=== PATIENT | female | born 1970 | race Caucasian/White ===

== ENCOUNTER 2020-07-11 08:43 | Emergency (ER) | payer OTHER ==
[2020-07-11 08:58] VITALS: O2SAT 97
--- NOTE | 2020-07-11 10:00 | XRAY ---
Indication: Pain. No known injury. Comparison: None 3 view right shoulder demonstrates 2.2 cm well-circumscribed ossification superolateral to humeral head with large effusion better evaluated with CT. No donor site identified. Query anterior inferior humeral head subluxation/dislocation. Minimal AC degenerative arthropathy.
--- NOTE | 2020-07-11 10:07 | ERPHSYRPT ---
- History of Present Illness Time Seen by Provider: 07/11/20 08:51 Source: patient Exam Limitations: no limitations Patient Subjective Stated Complaint: R shoulder pain Triage Nursing Assessment: pt to ED c/o R shoulder pain 12/30. reports she has b een moving and lifting heavily. reports liminted ROM "can't lift it up at all." no loss senstion distal to injury. no obvious trauma noted, no swelling or redness. states pain is non radiating. Physician History: Location: right shoulder Quality: dull, aching Radiation: none Severity: moderate Duration: 2-3 weeks Timing: gradual Modifying factors/associated signs and symptoms: started after moving, has taken tylenol, has not seen PCP Allergies/Adverse Reactions: codeine Allergy (Verified 07/11/20 09:01) Nausea Home Medications: Atorvastatin Calcium [Lipitor] 10 mg PO DAILY 07/11/20 [History] Dulaglutide [Trulicity] 0.75 mg SQ DAILY 07/11/20 [History] Insulin Glargine,Hum.rec.anlog [Basaglar Kwikpen U-100] 100 unit SQ DAILY 07/11/20 [History] Propranolol HCl 10 mg PO DAILY PRN PRN 07/11/20 [History] Hx Tetanus, Diphtheria Vaccination/Date Given: Yes Hx Influenza Vaccination/Date Given: Yes Hx Pneumococcal Vaccination/Date Given: Yes Immunizations Up to Date: Yes Travel Risk - International Travel Have you traveled outside of the country in past 3 weeks: No - Coronavirus Screening Are you exhibiting any of the following symptoms?: No Close contact with a COVID-19 positive Pt in past 14-21 Days: No - Review of Systems Constitutional: No Fever, No Chills Eyes: No Symptoms Ears, Nose, & Throat: No Symptoms Respiratory: No Cough, No Dyspnea Cardiac: No Chest Pain, No Edema, No Syncope Abdominal/Gastrointestinal: No Abdominal Pain, No Nausea, No Vomiting, No Diarrhea Genitourinary Symptoms: No Dysuria Musculoskeletal: Other (right shoulder pain ), No Back Pain, No Neck Pain Skin: No Rash Neurological: No Dizziness, No Focal Weakness, No Sensory Changes Psychological: No Symptoms Endocrine: No Symptoms All Other Systems: Reviewed and Negative - Past Medical History Pertinent Past Medical History: Yes Endocrine Medical History: Diabetes Type II Psycho-Social History: Depression - Past Surgical History Past Surgical History: Yes Gastrointestinal: Colon Resection - Social History Smoking Status: Never smoker Exposure to second hand smoke: No Drug Use: none Patient Lives Alone: No - Female History Hx Last Menstrual Period: post Hx Now: No - Nursing Vital Signs Nursing Vital Signs: Initial Vital Signs Temperature 98.3 F 07/11/20 08:49 Pulse Rate 86 07/11/20 08:49 Respiratory Rate 18 07/11/20 08:49 Blood Pressure 116/89 07/11/20 08:49 O2 Sat by Pulse Oximetry 97 07/11/20 08:49 Pain Scale Pain Intensity 8 - Physical Exam General Appearance: no apparent distress, alert Eye Exam: PERRL/EOMI, eyes nml inspection Ears, Nose, Throat Exam: normal ENT inspection, TMs normal, pharynx normal, moist mucous membranes Neck Exam: normal inspection, non-tender, supple, full range of motion Respiratory Exam: normal breath sounds, lungs clear, No respiratory distress Cardiovascular Exam: regular rate/rhythm, normal heart sounds, normal peripheral pulses Gastrointestinal/Abdomen Exam: soft, normal bowel sounds, No tenderness, No mass Back Exam: normal inspection, normal range of motion, No CVA tenderness, No vertebral tenderness Extremity Exam: normal inspection, normal range of motion, pelvis stable, other (No obvious deformity, sensation intact, 2+ capillary refill, 2 point tactile discrimination intact. 5 out of 5) Neurologic Exam: alert, 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, cooperative, normal mood/affect, nml cerebellar function, nml station & gait, sensation nml, No motor deficits Skin Exam: normal color, warm, dry, No rash Lymphatic Exam: No adenopathy SpO2: 97 - Course Nursing assessment & vital signs reviewed: Yes Ordered Tests: Active Orders 24 hr Category Date Time Status SHOULDER Stat Exams 07/11/20 09:25 Completed - Progress Progress: improved Progress Note: 07/11/20 10:13 XR shows right shoulder effusion. No obvious fracture. Patient should see orthopedic surgery in the next 4-5 days. Return here for new or changing symptoms. We will patient in sling for comfort. Plan of care was discussed with patient and all questions answered. The patient is agreeable to be discharged home and both verbal and printed discharge instructions were provided.The patient agreed to seek outpatient follow up as discussed. The patient was given strict instructions to return to the emergency department for worsening symptoms or any other emergent concerns. The patient verbalized understanding. - Departure Departure Disposition: Home Clinical Impression: Right shoulder pain, Effusion of shoulder joint, right Condition: Stable Critical Care Time: No Referrals: DOCTOR,NO FAMILY [Primary Care Provider] - ESTELLE ROWLAND NP [NON-STAFF PHY W/O PRIVILEGES] - Instructions: Shoulder Sprain (DC) Additional Instructions: follow up in ortho clinic on Tuesday or Tuesday for continued evaluation
[2020-07-11 10:37] VITALS: BP 122/88; PULSE 78
== END 2020-07-11 10:39 | disposition home or self-care (01) ==
LOC: ED 08:43
DX: M25.511 Pain in right shoulder (principal); M25.411 Effusion, right shoulder; X50.0XXA Overexertion from strenuous movement or load, initial encounter; E11.9 Type 2 diabetes mellitus without complications
CPT/HCPCS: 73030; 99283

== ENCOUNTER 2020-12-11 17:17 | Emergency (ER) | payer OTHER ==
[2020-12-11] MEDS ORDERED: Zofran 4 MG/2 ML VIAL IV ONE (17:57)
[2020-12-11] MEDS ORDERED: Sodium Chloride 0.9% 1000 ML 1,000 ML IV STA (17:57)
--- NOTE | 2020-12-11 18:01 | ERPHSYRPT ---
- History of Present Illness Time Seen by Provider: 12/11/20 17:23 Historian: patient Exam Limitations: no limitations Patient Subjective Stated Complaint: NV, light headedness, possible bite on L ankle x 1 week. seen in [facility] care this week and dx with food poisoning. same sx 4-5 weeks ago Triage Nursing Assessment: pt to ED c/o NV and light headedness x 1 week. pt states "See this bite on my ankle, I want to be tested for Lyme Disease because I have all the symptoms." pt reports she had this same thing happen 4-5 weeks ago but it cleared on its own after 1 week. pt has appt scheduled with PCP 12/26/20 but states she is "missing too much work and needs this figured out sooner." Physician History: 50 years old morbidly obese female with history of diabetes mellitus presented in the ER with 3 days history of nausea vomiting diarrhea with some abdominal cramping without any significant aggravating or relieving factors. She is feeling weak fatigued and tired with no energy. She was tested outpatient 2 days ago for Covid which is negative. Denies any difficulty breathing. No fever or chills reported. Patient reports she feels tired and prolonged standing makes her get lightheaded with a feeling of going to pass out denies any focal numbness tingling weakness, no headache Timing/Duration: day(s) (3), intermittent, gradual onset, worse Activities at Onset: rest Quality: cramping Abdominal Pain Onset Location: generalized abdomen Severity of Pain-Max: moderate Severity of Pain-Current: mild Modifying Factors: Improves With: nothing Associated Symptoms: diarrhea, nausea, vomiting, weakness Previous symptoms: no prior history Allergies/Adverse Reactions: codeine Allergy (Verified 12/11/20 17:40) Nausea Home Medications: Atorvastatin Calcium [Lipitor] 10 mg PO DAILY 07/11/20 [History] Dulaglutide [Trulicity] 0.75 mg SQ DAILY 07/11/20 [History] Insulin Glargine,Hum.rec.anlog [Basaglar Kwikpen U-100] 100 unit SQ DAILY 07/11/20 [History] Propranolol HCl 10 mg PO DAILY PRN PRN 07/11/20 [History] Amlodipine/Atorvastatin [Amlodipine-Atorvast 2.5-40 mg] 1 each PO DAILY 12/11/20 [History] Brexpiprazole [Rexulti] 0.5 mg PO DAILY 12/11/20 [History] Ferrous Gluconate 324 mg PO DAILY 12/11/20 [History] Magnesium 30 mg PO DAILY 12/11/20 [History] Hx Tetanus, Diphtheria Vaccination/Date Given: No Hx Influenza Vaccination/Date Given: Yes Hx Pneumococcal Vaccination/Date Given: No Immunizations Up to Date: No Travel Risk - International Travel Have you traveled outside of the country in past 3 weeks: No - Coronavirus Screening Are you exhibiting any of the following symptoms?: Yes Symptoms: Vomiting/Diarrhea Close contact with a COVID-19 positive Pt in past 14-21 Days: No - Vaccine Status Have you recieved a Covid-19 vaccination: No - Review of Systems Constitutional: Fatigue, Weakness Eyes: No Symptoms Ears, Nose, & Throat: No Symptoms Respiratory: No Symptoms Cardiac: No Symptoms Abdominal/Gastrointestinal: Abdominal Pain, Nausea, Vomiting, Diarrhea Genitourinary Symptoms: No Symptoms Musculoskeletal: No Symptoms Skin: No Symptoms Neurological: No Symptoms Psychological: No Symptoms Endocrine: No Symptoms Hematologic/Lymphatic: No Symptoms (Prior COPD exacerbation) Immunological/Allergic: No Symptoms - Past Medical History Pertinent Past Medical History: Yes Neurological History: No Pertinent History Cardiac History: High Cholesterol, Hypertension Respiratory History: No Pertinent History Endocrine Medical History: Diabetes Type II Musculoskeletal History: Fractures Psycho-Social History: Depression Other Medical History: fractured coccyx (20+ years ago), cracked ribbed (R side) - Past Surgical History Past Surgical History: Yes Gastrointestinal: Colon Resection - Social History Smoking Status: Never smoker Exposure to second hand smoke: No Drug Use: none Patient Lives Alone: No - Female History Hx Now: No (IUD) - Nursing Vital Signs Nursing Vital Signs: Initial Vital Signs Temperature 98.2 F 12/11/20 17:32 Pulse Rate 88 12/11/20 17:32 Respiratory Rate 20 12/11/20 17:32 Blood Pressure 125/79 12/11/20 17:32 O2 Sat by Pulse Oximetry 99 12/11/20 17:32 Pain Scale Pain Intensity 0 - Physical Exam General Appearance: no apparent distress Eye Exam: PERRL/EOMI, eyes nml inspection Ears, Nose, Throat Exam: normal ENT inspection, TMs normal, pharynx normal Neck Exam: normal inspection, non-tender, full range of motion Respiratory Exam: normal breath sounds, lungs clear Cardiovascular Exam: regular rate/rhythm, normal heart sounds Gastrointestinal/Abdomen Exam: soft, normal bowel sounds, No tenderness, No guarding Back Exam: normal inspection, normal range of motion Extremity Exam: normal inspection, normal range of motion Neurologic Exam: alert, 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, cooperative, 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, normal mood/affect, nml cerebellar function, nml station & gait, sensation nml Skin Exam: normal color SpO2 Interpretation: normal SpO2: 99 O2 Delivery: Room Air Ordered Tests: Active Orders 24 hr Category Date Time Status IV Insertion STAT Care 12/11/20 17:57 Active NPO (ED) STAT Care 12/11/20 17:57 Active Orthostatic Vital Signs STAT Care 12/11/20 17:58 Active ABDOMEN AND PELVIS W/0 CONTRAS [CT] Stat Exams 12/11/20 17:57 Taken CBC W DIFF Stat Lab 12/11/20 18:50 Completed CMP Stat Lab 12/11/20 18:50 Completed LIPASE Stat Lab 12/11/20 18:50 Completed UA W/RFX UR CULTURE Stat Lab 12/11/20 19:48 Received Medication Summary Discontinued Medications Generic Name Dose Route Start Last Admin Trade Name Freq PRN Reason Stop Dose Admin Sodium Chloride 1,000 mls @ 999 mls/hr 12/11/20 17:57 12/11/20 19:31 Sodium Chloride 0.9% 1000 Ml IV 12/11/20 18:57 999 mls/hr .Q1H1M STA Administration Sodium Chloride Confirm 12/11/20 19:20 Sodium Chloride 0.9% 1000 Ml Administered 12/11/20 19:21 Dose 1,000 mls @ ud .ROUTE .STK-MED ONE Ondansetron HCl 4 mg 12/11/20 17:57 12/11/20 19:31 Zofran 4 Mg/2 Ml Vial IV 12/11/20 17:58 4 mg STAT ONE Administration Ondansetron HCl Confirm 12/11/20 19:20 Zofran 4 Mg/2 Ml Vial Administered 12/11/20 19:21 Dose 4 mg .ROUTE .STK-MED ONE Lab/Rad Data: Laboratory Result Diagrams 12/11/20 18:50 12/11/20 18:50 Laboratory Results 12/11/20 12/11/20 12/11/20 Range/Units 19:48 18:50 18:50 WBC 10.6 H (4.0-10.5) K/mm3 RBC 4.68 (4.1-5.4) M/mm3 Hgb 13.0 (12.0-16.0) gm/dl Hct 40.7 (35-47) % MCV 87.0 (78-100) fl MCH 27.8 (26-32) pg MCHC 31.9 L (32-36) g/dl RDW 13.8 (11.5-14.0) % Plt Count 317 (150-450) K/mm3 MPV 10.3 (7.5-11.0) fl Gran % 45.1 (36.0-66.0) % Eos # (Auto) 0.19 (0-0.5) Absolute Lymphs (auto) 4.55 (1.0-4.6) Absolute Monos (auto) 1.02 (0.0-1.3) Lymphocytes % 43.1 (24.0-44.0) % Monocytes % 9.7 (0.0-12.0) % Eosinophils % 1.8 (0.00-5.0) % Basophils % 0.3 (0.0-0.4) % Absolute Granulocytes 4.76 (1.4-6.9) Basophils # 0.03 (0-0.4) Sodium 138 (137-145) mmol/L Potassium 4.0 (3.5-5.1) mmol/L Chloride 99 (98-107) mmol/L Carbon Dioxide 28 (22-30) mmol/L Anion Gap 14.7 (5-15) MEQ/L BUN 11 (7-17) mg/dL Creatinine 0.55 (0.52-1.04) mg/dL Estimated GFR > 60.0 ML/MIN Glucose 267 H (74-106) mg/dL Calcium 9.3 (8.4-10.2) mg/dL Total Bilirubin 0.20 (0.2-1.3) mg/dL AST 26 (14-36) U/L ALT 25 (0-35) U/L Alkaline Phosphatase 90 (38-126) U/L Serum Total Protein 6.7 (6.3-8.2) g/dL Albumin 4.0 (3.5-5.0) g/dL Lipase 242 (23-300) U/L Urine Color YELLOW (YELLOW) Urine Appearance CLEAR (CLEAR) Urine pH 6.0 (5-6) Ur Specific [place] 1.022 (1.005-1.025) Urine Protein NEGATIVE (Negative) Urine Ketones TRACE (NEGATIVE) Urine Blood NEGATIVE (0-5) Hunter/ul Urine Nitrite NEGATIVE (NEGATIVE) Urine Bilirubin NEGATIVE (NEGATIVE) Urine Urobilinogen NEGATIVE (0-1) mg/dL Ur Leukocyte Esterase NEGATIVE (NEGATIVE) Urine WBC (Auto) NONE (0-5) /HPF Urine RBC (Auto) NONE (0-2) /HPF U Epithel Cells (Auto) NONE (FEW) /HPF Urine Mucus (Auto) SLIGHT (NEGATIVE) /HPF Urine Culture Reflexed NO (NO) Urine Glucose >=500 (NEGATIVE) mg/dL - Progress Progress: improved, re-examined Progress Note: 12/11/20 20:20 She is given fluid bolus along with symptomatic treatment, on reevaluation feeling much better. No peritoneal signs on repeated evaluation. Minimally elevated white count, grossly unremarkable chemistries except for elevated glucose. No UTI. I have obtained CT abdomen pelvis which is negative for any acute findings. I believe patient has gastroenteritis, recommended supportive care. Discussed signs symptoms of worsening needing return to ER which he seems understanding. Stable for discharge. Counseled pt/family regarding: lab results, diagnosis, need for follow-up, rad results - Departure Departure Disposition: Home Clinical Impression: Gastroenteritis Condition: Stable Critical Care Time: No Referrals: DOCTOR,NO FAMILY [Primary Care Provider] - SASKIA GRAJEDA [ACTIVE STAFF] - (1-2 days for reevaluation) Instructions: Viral Gastroenteritis, Adult (DC) Additional Instructions: Drink plenty of fluids to keep yourself well-hydrated. Take Zofran as needed for nausea vomiting. Follow-up with primary care physician for reevaluation. Return to ER for intractable pain/vomiting/diarrhea, inability to hold anything down. Prescriptions: Ondansetron ODT 4 MG [Zofran Odt 4 mg] 4 mg PO Q6H PRN PRN #10 tab.rapdis PRN Reason: Vomiting
[2020-12-11 18:58] LABS: Absolute Neutrophil Ct (ANC) 4.76 (1.4-6.9); BASOPHIL % 0.3 % (0.0-0.4); Basophil (Absolute #) 0.03 (0-0.4); Eosinophil % 1.8 % (0.00-5.0); Eosinophil (Absolute #) 0.19 (0-0.5); Hematocrit 40.7 % (35-47); Lymphocyte (Absolute #) 4.55 (1.0-4.6); Lymphocytes % 43.1 % (24.0-44.0); Mean Corpuscular Hemoglobin 27.8 pg (26-32); Mean Corpuscular Hgb Concent. 31.9 g/dl (32-36); Mean Platelet Volume 10.3 fl (7.5-11.0); Monocyte (Absolute #) 1.02 (0.0-1.3); Monocytes % 9.7 % (0.0-12.0); Neutrophil % 45.1 % (36.0-66.0); Platelet Count 317 K/mm3 (150-450); Red Blood Count 4.68 M/mm3 (4.1-5.4); Red Cell Distribution Width 13.8 % (11.5-14.0); White Blood Count 10.6 K/mm3 (4.0-10.5)
[2020-12-11 19:12] LABS: ALKALINE PHOSPHATASE 90 U/L (38-126); ANION GAP 14.7 MEQ/L (5-15); BLOOD UREA NITROGEN 11 mg/dL (7-17); CHLORIDE 99 mmol/L (98-107); Calcium 9.3 mg/dL (8.4-10.2); Carbon Dioxide 28 mmol/L (22-30); Creatinine 1 0.55 mg/dL (0.52-1.04); EST GLOMERULAR FILTRATION RATE > 60.0 ML/MIN; Glucose 267 mg/dL (74-106); LIPASE 242 U/L (23-300); SGOT/AST 26 U/L (14-36); SGPT/ALT 25 U/L (0-35); SODIUM 138 mmol/L (137-145); Total Protein 6.7 g/dL (6.3-8.2)
[2020-12-11] MEDS ORDERED: Sodium Chloride 0.9% 1000 ML 1,000 ML ONE (19:20)
[2020-12-11] MEDS ORDERED: Zofran 4 MG/2 ML VIAL ONE (19:20)
[2020-12-11 20:05] LABS: Appearance CLEAR (CLEAR); Bilirubin NEGATIVE (NEGATIVE); Blood NEGATIVE Ery/ul (0-5); Glucose >=500 mg/dL (NEGATIVE); Ketones TRACE (NEGATIVE); Leukocyte Esterase NEGATIVE (NEGATIVE); Mucus SLIGHT /HPF (NEGATIVE); Nitrite NEGATIVE (NEGATIVE); Protein,Urine Dip NEGATIVE (Negative); Specific Gravity 1.022 (1.005-1.025); Urobilinogen NEGATIVE mg/dL (0-1)
[2020-12-11 20:23] VITALS: O2SAT 99
[2020-12-11 20:28] VITALS: BP 108/67; PULSE 84
--- NOTE | 2020-12-12 08:55 | XRAY ---
Indication: Abdomen pain. Colitis. Multiple contiguous axial images obtained through the abdomen and pelvis without contrast. Comparison: None Lung bases are clear. Heart not enlarged. Stomach is moderately distended with food/fluid. Noncontrasted bowel loops appear nonobstructed. Normal appendix. Intact mid transverse colon anastomosis. Minimal sigmoid diverticulosis without diverticulitis. Uterus demonstrates IUD. Gallbladder partially contracted without gallstones. No free fluid/air. Fatty hepatomegaly measuring 25 cm. Tiny splenic calcified granulomas. Remaining liver, gallbladder, pancreas, spleen, adrenal glands, kidneys, ureters, bladder, and uterus unremarkable for noncontrast exam. Minimal aortoiliac calcifications without AAA. Osseous structures intact with mild degenerative changes throughout the spine. No ventral or inguinal hernias. Impression: 1. Sigmoid diverticulosis, fatty liver, and old granulomatous disease. 2. Remaining CT abdomen/pelvis without contrast exam is negative.
== END 2020-12-11 20:40 | disposition home or self-care (01) ==
LOC: ED 17:17
DX: K52.9 Noninfective gastroenteritis and colitis, unspecified (principal); E11.9 Type 2 diabetes mellitus without complications
CPT/HCPCS: 36000; 36415; 74176; 80053; 81001; 83690; 85025; 96360; 96374; 99284; J2405

== ENCOUNTER 2021-04-14 09:00 | Emergency (ER) | payer OTHER ==
--- NOTE | 2021-04-14 09:14 | ERPHSYRPT ---
- History of Present Illness Time Seen by Provider: 04/14/21 09:11 Historian: patient Exam Limitations: no limitations Physician History: This is a morbidly obese 51-year-old white female who has had right flank pain which radiates around to the right side of her body for 1 week. There is been associated nausea but no vomiting. Patient denies chest pain. She denies shortness of breath. She has not had any diarrhea. Patient has had a colon resection in the past. Patient has a history of diabetes, hypertension and elevated cholesterol. Timing/Duration: week(s) (1) Activities at Onset: none Quality: aching Abdominal Pain Onset Location: RUQ, RLQ, flank Pain Radiation: RUQ, RLQ Severity of Pain-Max: mild Severity of Pain-Current: mild Associated Symptoms: nausea, No chest pain, No fever/chills, No vomiting Previous symptoms: no prior history Allergies/Adverse Reactions: codeine Allergy (Verified 12/11/20 17:40) Nausea Home Medications: Atorvastatin Calcium [Lipitor] 10 mg PO DAILY 07/11/20 [History] Dulaglutide [Trulicity] 0.75 mg SQ DAILY 07/11/20 [History] Insulin Glargine,Hum.rec.anlog [Basaglar Kwikpen U-100] 100 unit SQ DAILY 07/11/20 [History] Propranolol HCl 10 mg PO DAILY PRN PRN 07/11/20 [History] Amlodipine/Atorvastatin [Amlodipine-Atorvast 2.5-40 mg] 1 each PO DAILY 12/11/20 [History] Brexpiprazole [Rexulti] 0.5 mg PO DAILY 12/11/20 [History] Ferrous Gluconate 324 mg PO DAILY 12/11/20 [History] Magnesium 30 mg PO DAILY 12/11/20 [History] Hx Tetanus, Diphtheria Vaccination/Date Given: No Hx Influenza Vaccination/Date Given: Yes Hx Pneumococcal Vaccination/Date Given: No Travel Risk - International Travel Have you traveled outside of the country in past 3 weeks: No - Coronavirus Screening Are you exhibiting any of the following symptoms?: No Close contact with a COVID-19 positive Pt in past 14-21 Days: No - Vaccine Status Have you recieved a Covid-19 vaccination: No - Review of Systems Constitutional: No Symptoms Eyes: No Symptoms Ears, Nose, & Throat: No Symptoms Respiratory: No Symptoms Cardiac: No Symptoms Abdominal/Gastrointestinal: Abdominal Pain (Right upper quadrant) Genitourinary Symptoms: Flank Pain (Right) Musculoskeletal: No Symptoms Skin: No Symptoms Neurological: No Symptoms Psychological: No Symptoms Endocrine: No Symptoms Hematologic/Lymphatic: No Symptoms Immunological/Allergic: No Symptoms All Other Systems: Reviewed and Negative - Past Medical History Pertinent Past Medical History: Yes Neurological History: No Pertinent History Cardiac History: High Cholesterol, Hypertension Respiratory History: No Pertinent History Endocrine Medical History: Diabetes Type II Musculoskeletal History: Fractures Psycho-Social History: Depression Other Medical History: fractured coccyx (20+ years ago), cracked ribbed (R side) - Past Surgical History Past Surgical History: Yes Gastrointestinal: Colon Resection - Social History Smoking Status: Never smoker Exposure to second hand smoke: No Drug Use: none Patient Lives Alone: No - Nursing Vital Signs Nursing Vital Signs: Initial Vital Signs Temperature 96 F 04/14/21 09:06 Pulse Rate 94 H 04/14/21 09:06 Respiratory Rate 17 04/14/21 09:06 Blood Pressure 136/88 04/14/21 09:06 O2 Sat by Pulse Oximetry 98 04/14/21 09:06 Pain Scale Pain Intensity 7 - Physical Exam General Appearance: no apparent distress, alert, anxiety, obese Eye Exam: PERRL/EOMI, eyes nml inspection Ears, Nose, Throat Exam: normal ENT inspection, moist mucous membranes Neck Exam: normal inspection, non-tender, supple, full range of motion Respiratory Exam: normal breath sounds, lungs clear, airway intact, No chest tenderness, No respiratory distress Cardiovascular Exam: regular rate/rhythm, normal heart sounds, normal peripheral pulses Gastrointestinal/Abdomen Exam: soft, normal bowel sounds, tenderness (Mild right upper quadrant), guarding, No rebound Pelvic Exam: not done Rectal Exam: not done Back Exam: normal inspection, normal range of motion, CVA tenderness (Right flank), No vertebral tenderness Extremity Exam: normal inspection, normal range of motion, pelvis stable Neurologic Exam: alert, 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, cooperative, 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, normal mood/affect, nml cerebellar function, nml station & gait, sensation nml Skin Exam: normal color, warm, dry Lymphatic Exam: No adenopathy SpO2 Interpretation: normal O2 Delivery: Room Air - Course Nursing assessment & vital signs reviewed: Yes Ordered Tests: Active Orders 24 hr Category Date Time Status IV Insertion STAT Care 04/14/21 09:14 Active ABDOMEN AND PELVIS W/0 CONTRAS [CT] Stat Exams 04/14/21 09:15 Completed AMYLASE Stat Lab 04/14/21 09:28 Completed CBC W DIFF Stat Lab 04/14/21 09:30 Completed CMP Stat Lab 04/14/21 09:28 Completed CULTURE,URINE Stat Lab 04/14/21 09:28 Received LIPASE Stat Lab 04/14/21 09:28 Completed Lactic Acid Stat Lab 04/14/21 09:28 Completed UA W/RFX UR CULTURE Stat Lab 04/14/21 09:28 Completed Medication Summary Generic Name Dose Route Start Last Admin Trade Name Freq PRN Reason Stop Dose Admin Ceftriaxone Sodium/Dextrose 1 g in 50 mls @ 100 mls/hr 04/14/21 10:14 10:20 Rocephin 1 Gm-D5w 50 Ml Bag IV 04/14/21 10:43 100 mls/hr STAT STA 100 mls/hr Administration Discontinued Medications Generic Name Dose Route Start Last Admin Trade Name Freq PRN Reason Stop Dose Admin Ceftriaxone Sodium/Dextrose Confirm 04/14/21 10:18 Rocephin 1 Gm-D5w 50 Ml Bag Administered 04/14/21 10:19 Dose 1 g in 50 mls @ ud IV .STK-MED ONE Ondansetron HCl 4 mg 04/14/21 09:14 04/14/21 09:21 Ondansetron Hcl 4 Mg/2 Ml Vial IV 04/14/21 09:15 4 mg STAT ONE Administration Ondansetron HCl Confirm 04/14/21 09:20 Ondansetron Hcl 4 Mg/2 Ml Vial Administered 04/14/21 09:21 Dose 4 mg .ROUTE .STK-MED ONE Lab/Rad Data: Laboratory Result Diagrams 04/14/21 09:30 04/14/21 09:28 Laboratory Results 04/14/21 04/14/21 04/14/21 Range/Units 09:30 09:28 09:28 WBC 9.5 (4.0-10.5) K/mm3 RBC 5.22 (4.1-5.4) M/mm3 Hgb 14.1 (12.0-16.0) gm/dl Hct 44.9 (35-47) % MCV 86.0 (78-100) fl MCH 27.0 (26-32) pg MCHC 31.4 L (32-36) g/dl RDW 13.8 (11.5-14.0) % Plt Count 331 (150-450) K/mm3 MPV 10.1 (7.5-11.0) fl Gran % 45.7 (36.0-66.0) % Eos # (Auto) 0.14 (0-0.5) Absolute Lymphs (auto) 4.22 (1.0-4.6) Absolute Monos (auto) 0.77 (0.0-1.3) Lymphocytes % 44.4 H (24.0-44.0) % Monocytes % 8.1 (0.0-12.0) % Eosinophils % 1.5 (0.00-5.0) % Basophils % 0.3 (0.0-0.4) % Absolute Granulocytes 4.34 (1.4-6.9) Basophils # 0.03 (0-0.4) Sodium 137 (137-145) mmol/L Potassium 4.5 (3.5-5.1) mmol/L Chloride 103 (98-107) mmol/L Carbon Dioxide 23 (22-30) mmol/L Anion Gap 14.9 (5-15) MEQ/L BUN 14 (7-17) mg/dL Creatinine 0.46 L (0.52-1.04) mg/dL Estimated GFR > 60.0 ML/MIN Glucose 271 H (74-106) mg/dL Lactic Acid 2.3 H (0.4-2.0) Calcium 9.0 (8.4-10.2) mg/dL Total Bilirubin 0.70 (0.2-1.3) mg/dL AST 23 (14-36) U/L ALT 22 (0-35) U/L Alkaline Phosphatase 114 (38-126) U/L Serum Total Protein 6.7 (6.3-8.2) g/dL Albumin 4.0 (3.5-5.0) g/dL Amylase 66 (30-110) U/L Lipase 380 H (23-300) U/L Urine Color (YELLOW) Urine Appearance (CLEAR) Urine pH (5-6) Ur Specific [place] (1.005-1.025) Urine Protein (Negative) Urine Ketones (NEGATIVE) Urine Blood (0-5) Hunter/ul Urine Nitrite (NEGATIVE) Urine Bilirubin (NEGATIVE) Urine Urobilinogen (0-1) mg/dL Ur Leukocyte Esterase (NEGATIVE) Urine WBC (Auto) (0-5) /HPF Urine RBC (Auto) (0-2) /HPF U Epithel Cells (Auto) (FEW) /HPF Urine Bacteria (Auto) (NEGATIVE) /HPF Urine Mucus (Auto) (NEGATIVE) /HPF Urine Culture Reflexed (NO) Urine Glucose (NEGATIVE) mg/dL 04/14/21 Range/Units 09:28 WBC (4.0-10.5) K/mm3 RBC (4.1-5.4) M/mm3 Hgb (12.0-16.0) gm/dl Hct (35-47) % MCV (78-100) fl MCH (26-32) pg MCHC (32-36) g/dl RDW (11.5-14.0) % Plt Count (150-450) K/mm3 MPV (7.5-11.0) fl Gran % (36.0-66.0) % Eos # (Auto) (0-0.5) Absolute Lymphs (auto) (1.0-4.6) Absolute Monos (auto) (0.0-1.3) Lymphocytes % (24.0-44.0) % Monocytes % (0.0-12.0) % Eosinophils % (0.00-5.0) % Basophils % (0.0-0.4) % Absolute Granulocytes (1.4-6.9) Basophils # (0-0.4) Sodium (137-145) mmol/L Potassium (3.5-5.1) mmol/L Chloride (98-107) mmol/L Carbon Dioxide (22-30) mmol/L Anion Gap (5-15) MEQ/L BUN (7-17) mg/dL Creatinine (0.52-1.04) mg/dL Estimated GFR ML/MIN Glucose (74-106) mg/dL Lactic Acid (0.4-2.0) Calcium (8.4-10.2) mg/dL Total Bilirubin (0.2-1.3) mg/dL AST (14-36) U/L ALT (0-35) U/L Alkaline Phosphatase (38-126) U/L Serum Total Protein (6.3-8.2) g/dL Albumin (3.5-5.0) g/dL Amylase (30-110) U/L Lipase (23-300) U/L Urine Color YELLOW (YELLOW) Urine Appearance CLOUDY (CLEAR) Urine pH 5.0 (5-6) Ur Specific [place] 1.025 (1.005-1.025) Urine Protein 30 (Negative) Urine Ketones TRACE (NEGATIVE) Urine Blood NEGATIVE (0-5) Hunter/ul Urine Nitrite NEGATIVE (NEGATIVE) Urine Bilirubin NEGATIVE (NEGATIVE) Urine Urobilinogen NEGATIVE (0-1) mg/dL Ur Leukocyte Esterase MODERATE (NEGATIVE) Urine WBC (Auto) >100 (0-5) /HPF Urine RBC (Auto) 0-2 (0-2) /HPF U Epithel Cells (Auto) FEW (FEW) /HPF Urine Bacteria (Auto) RARE (NEGATIVE) /HPF Urine Mucus (Auto) SLIGHT (NEGATIVE) /HPF Urine Culture Reflexed YES (NO) Urine Glucose >=500 (NEGATIVE) mg/dL - Progress Progress: improved, pain not gone completely, re-examined Progress Note: 04/14/21 10:32 CAT scan of the abdomen and pelvis without contrast shows mild sigmoid divert iculosis. There is no evidence of any acute intra-abdominal or intrapelvic findings. Counseled pt/family regarding: lab results, diagnosis, need for follow-up, rad results - Departure Departure Disposition: Home Clinical Impression: UTI (urinary tract infection) Condition: Stable Critical Care Time: No Referrals: DOCTOR,NO FAMILY [NON-STAFF PHY W/O PRIVILEGES] - Follow up/PCP as directed Additional Instructions: Drink plenty fluids. Follow-up with your primary care physician for further management. Take your medications as prescribed. Prescriptions: Ondansetron ODT 4 MG [Zofran Odt 4 mg] 4 mg PO Q6H PRN PRN #10 tablet PRN Reason: Vomiting Ciprofloxacin [Cipro 500 MG] 500 mg PO BID #14 tablet
[2021-04-14] MEDS ORDERED: Zofran 4 MG/2 ML VIAL ONE (09:20)
[2021-04-14] MEDS: Zofran 4 MG/2 ML VIAL IV ONE (09:21)
[2021-04-14 09:32] LABS: Absolute Neutrophil Ct (ANC) 4.34 (1.4-6.9); BASOPHIL % 0.3 % (0.0-0.4); Basophil (Absolute #) 0.03 (0-0.4); Eosinophil % 1.5 % (0.00-5.0); Eosinophil (Absolute #) 0.14 (0-0.5); Hematocrit 44.9 % (35-47); Hemoglobin 14.1 gm/dl (12.0-16.0); Lymphocyte (Absolute #) 4.22 (1.0-4.6); Lymphocytes % 44.4 % (24.0-44.0); Mean Corpuscular Hgb Concent. 31.4 g/dl (32-36); Mean Platelet Volume 10.1 fl (7.5-11.0); Monocyte (Absolute #) 0.77 (0.0-1.3); Monocytes % 8.1 % (0.0-12.0); Neutrophil % 45.7 % (36.0-66.0); Platelet Count 331 K/mm3 (150-450); Red Blood Count 5.22 M/mm3 (4.1-5.4); Red Cell Distribution Width 13.8 % (11.5-14.0); White Blood Count 9.5 K/mm3 (4.0-10.5)
[2021-04-14 09:36] LABS: Appearance CLOUDY (CLEAR); Bilirubin NEGATIVE (NEGATIVE); Blood NEGATIVE Ery/ul (0-5); Epithelial Cells FEW /HPF (FEW); Glucose >=500 mg/dL (NEGATIVE); Ketones TRACE (NEGATIVE); Leukocyte Esterase MODERATE (NEGATIVE); Mucus SLIGHT /HPF (NEGATIVE); Nitrite NEGATIVE (NEGATIVE); Protein,Urine Dip 30 (Negative); RBC 0-2 /HPF (0-2); Specific Gravity 1.025 (1.005-1.025); Urobilinogen NEGATIVE mg/dL (0-1); WBC >100 /HPF (0-5)
[2021-04-14 09:42] LABS: Bacteria RARE /HPF (NEGATIVE)
[2021-04-14 09:47] LABS: ALKALINE PHOSPHATASE 114 U/L (38-126); AMYLASE 66 U/L (30-110); ANION GAP 14.9 MEQ/L (5-15); BLOOD UREA NITROGEN 14 mg/dL (7-17); CHLORIDE 103 mmol/L (98-107); Carbon Dioxide 23 mmol/L (22-30); Creatinine 1 0.46 mg/dL (0.52-1.04); EST GLOMERULAR FILTRATION RATE > 60.0 ML/MIN; Glucose 271 mg/dL (74-106); LIPASE 380 U/L (23-300); Potassium 4.5 mmol/L (3.5-5.1); SGOT/AST 23 U/L (14-36); SGPT/ALT 22 U/L (0-35); SODIUM 137 mmol/L (137-145); Total Protein 6.7 g/dL (6.3-8.2)
--- NOTE | 2021-04-14 10:12 | XRAY ---
Indication: Right flank pain. Nausea. Multiple contiguous axial images obtained through the abdomen and pelvis without contrast. Comparison: December 11, 2020. Lung bases remain clear. Heart not enlarged. Noncontrasted stomach and bowel loops nonobstructed again with normal appendix and intact mid transverse colon anastomosis. Stable mild sigmoid diverticulosis, fatty liver, splenic calcified granulomas, and uterine IUD. No free fluid/air. Remaining liver, gallbladder, pancreas, spleen, adrenal glands, kidneys, ureters, bladder, and uterus appear unremarkable for noncontrast exam. Again minimal aortoiliac calcifications without AAA. Osseous structures intact again with mild degenerative spondylosis throughout the spine and minimal grade 1 L4 spondylolisthesis. Impression: 1. Stable sigmoid diverticulosis, fatty liver, chronic bony findings, and old granulomatous disease. 2. Remaining CT abdomen/pelvis without contrast exam is again negative.
[2021-04-14 10:13] VITALS: BP 129/85; PULSE 87; O2SAT 94
[2021-04-14] MEDS ORDERED: ROCEPHIN 1 Gm-D5w 50 ml Bag** 1 G/50 ML IVPB IV ONE (10:18)
[2021-04-14] MEDS: ROCEPHIN 1 Gm-D5w 50 ml Bag** 1 G/50 ML IVPB IV STA (10:20)
== END 2021-04-14 10:57 | disposition home or self-care (01) ==
LOC: ED 09:00
DX: N39.0 Urinary tract infection, site not specified (principal); R11.0 Nausea; E11.8 Type 2 diabetes mellitus with unspecified complications; Z79.4 Long term (current) use of insulin; I10 Essential (primary) hypertension; E78.5 Hyperlipidemia, unspecified; Z79.899 Other long term (current) drug therapy; K57.30 Diverticulosis of large intestine without perforation or abscess without bleeding
CPT/HCPCS: 36000; 36415; 74176; 80053; 81001; 82150; 83605; 83690; 85025; 87086; 96365; 96374; 99284; J0696; J2405

== ENCOUNTER 2021-11-19 11:26 | Emergency (ER) | payer OTHER ==
--- NOTE | 2021-11-19 12:13 | ERPHSYRPT ---
- History of Present Illness Historian: patient Exam Limitations: no limitations Patient Subjective Stated Complaint: C/O SOB that started today. Denies cough or fever. Denies pain but c/o "chest heaviness" Triage Nursing Assessment: No SOB noted upon arrival to ED. No cough noted during triage. Lungs clear. Skin warm, dry, normal skin tone. Alert and oriented and answering questions appropriately. Physician History: 51 yo wf w "chest heaviness" x 4 hours. Pain is 5/10 and does not radiate. She is mildly dyspneic but denies N/V/diaphorsis. Cough and coryza also denied. Pt has DM2/Hyperlipidemia but denies HTN/tobacco use/ho MA-CAD. Timing/Duration: other (4 hours) Activities at Onset: rest Quality: other (Heaviness) Location: substernal Chest Pain Radiation: no radiation Severity of Pain-Max: moderate Severity of Pain-Current: moderate Modifying Factors: Improves With: nothing Associated Symptoms: shortness of breath, No nausea, No vomiting, No palpitations, No heartburn, No abdominal pain, No cough, No hurts to breathe, No diaphoresis, No chills, No fever, No fatigue, No weakness, No swelling/lump in chest, No syncope, No rash, No headache, No dizziness, No edema, No back pain Prior Chest Pain/Cardiac Workup: no prior chest pain Nitro Today/Relief: no nitro taken today Aspirin Treatment Today: no aspirin today Allergies/Adverse Reactions: codeine Allergy (Verified 11/19/21 11:28) Nausea Home Medications: Cyanocobalamin (Vitamin B-12) [Vitamin B12] 500 mcg PO DAILY 11/19/21 [History] Ezetimibe 10 mg [Zetia 10 MG] 1 tab PO DAILY 11/19/21 [History] Hx Tetanus, Diphtheria Vaccination/Date Given: Yes Hx Influenza Vaccination/Date Given: Yes Hx Pneumococcal Vaccination/Date Given: No Immunizations Up to Date: Yes Travel Risk - International Travel Have you traveled outside of the country in past 3 weeks: No - Coronavirus Screening Are you exhibiting any of the following symptoms?: Yes Symptoms: Shortness of Breath Close contact with a COVID-19 positive Pt in past 14-21 Days: No - Vaccine Status Have you recieved a Covid-19 vaccination: Yes 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 - Vaccination Dates Date of 2cond Vaccination (if applicable): december 2020 - Review of Systems Constitutional: No Symptoms Eyes: No Symptoms Ears, Nose, & Throat: No Symptoms Respiratory: No Symptoms, Dyspnea Cardiac: No Symptoms, Chest Pain Abdominal/Gastrointestinal: No Symptoms Genitourinary Symptoms: No Symptoms Musculoskeletal: No Symptoms Skin: No Symptoms Neurological: No Symptoms Psychological: No Symptoms Endocrine: No Symptoms Hematologic/Lymphatic: No Symptoms Immunological/Allergic: No Symptoms - Past Medical History Pertinent Past Medical History: Yes Neurological History: No Pertinent History Cardiac History: High Cholesterol, Hypertension Respiratory History: No Pertinent History Endocrine Medical History: Diabetes Type II, Hypothyroidism Musculoskeletal History: Fractures GI Medical History: Gallbladder Disease Psycho-Social History: Depression Other Medical History: fractured coccyx (20+ years ago), cracked ribbed (R side), thyroid nodule - Past Surgical History Past Surgical History: Yes Gastrointestinal: Cholecystectomy, Colon Resection - Social History Smoking Status: Never smoker Exposure to second hand smoke: No Drug Use: none Patient Lives Alone: No Significant Family History: no pertinent family hx - Nursing Vital Signs Nursing Vital Signs: Initial Vital Signs Temperature 97.1 F 11/19/21 11:31 Pulse Rate 83 11/19/21 11:31 Respiratory Rate 13 11/19/21 11:31 Blood Pressure 116/84 11/19/21 11:31 O2 Sat by Pulse Oximetry 97 11/19/21 11:31 Pain Scale Pain Intensity 0 WNL - Physical Exam General Appearance: no apparent distress Eye Exam: PERRL/EOMI, eyes nml inspection Ears, Nose, Throat Exam: normal ENT inspection, TMs normal, pharynx normal, moist mucous membranes Neck Exam: normal inspection, non-tender, supple, full range of motion, No meningismus, No mass, No Brudzinski, No Kernig's, No carotid bruit Respiratory Exam: normal breath sounds, lungs clear, airway intact, No chest tenderness, No respiratory distress Cardiovascular Exam: regular rate/rhythm, normal heart sounds, normal peripheral pulses, capillary refill <2 sec, No murmur Gastrointestinal/Abdomen Exam: soft, normal bowel sounds, No tenderness Back Exam: normal inspection, normal range of motion, No CVA tenderness Extremity Exam: normal inspection, normal range of motion Neurologic Exam: alert, 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, 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, 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, normal mood/affect, nml cerebellar function, nml station & gait, sensation nml Skin Exam: normal color, warm, dry Lymphatic Exam: No adenopathy SpO2 Interpretation: normal SpO2: 97 O2 Delivery: Room Air - Course Nursing assessment & vital signs reviewed: Yes EKG Interpreted by Me: RATE (NSR/Rate78/Nornal QT-QTc/Flat Twaves/Low voltage vs poor Rwave progression) - Radiology Exams Chest X-ray Interpretation: Discussed w/ radiologist (NAD) Ordered Tests: Active Orders 24 hr Category Date Time Status EKG-ER Only STAT Care 11/19/21 12:07 Completed CHEST 1 VIEW (PORTABLE) Stat Exams 11/19/21 12:08 Completed CBC W DIFF Stat Lab 11/19/21 12:15 Completed CMP Stat Lab 11/19/21 12:15 Completed NT PRO BNP Stat Lab 11/19/21 12:15 Completed PROTIME WITH INR Stat Lab 11/19/21 12:15 Completed PTT Stat Lab 11/19/21 12:15 Completed TROPONIN Q3H Lab 11/19/21 12:15 Completed TROPONIN Q3H Lab 11/19/21 14:35 Completed TROPONIN Q3H Lab 11/19/21 18:15 Ordered TROPONIN Q3H Lab 11/19/21 21:15 Ordered Lab/Rad Data: Laboratory Result Diagrams 11/19/21 12:15 11/19/21 12:15 Laboratory Results 11/19/21 11/19/21 11/19/21 Range/Units 14:35 12:15 12:15 WBC (4.0-10.5) x10^3/uL RBC (4.1-5.4) x10^6/uL Hgb (12.0-16.0) g/dL Hct (35-47) % MCV (78-100) fL MCH (26-32) pg MCHC (32-36) g/dL RDW (11.5-14.0) % Plt Count (150-450) x10^3/uL MPV (7.5-11.0) fL Gran % (36.0-66.0) % Immature Gran % (Auto) (0.00-0.4) % Nucleat RBC Rel Count (0.00-0.1) % Eos # (Auto) (0-0.5) x10^3/uL Immature Gran # (Auto) (0.00-0.03) x10^3u/L Absolute Lymphs (auto) (1.0-4.6) x10^3/uL Absolute Monos (auto) (0.0-1.3) x10^3/uL Absolute Nucleated RBC (0.00-0.01) x10^3u/L Lymphocytes % (24.0-44.0) % Monocytes % (0.0-12.0) % Eosinophils % (0.00-5.0) % Basophils % (0.0-0.4) % Absolute Granulocytes (1.4-6.9) x10^3/uL Basophils # (0-0.4) x10^3/uL PT (9.4-12.5) SECONDS INR (0.8-3.0) APTT (25.1-36.5) SECONDS Sodium (137-145) mmol/L Potassium (3.5-5.1) mmol/L Chloride (98-107) mmol/L Carbon Dioxide (22-30) mmol/L Anion Gap (5-15) MEQ/L BUN (7-17) mg/dL Creatinine (0.52-1.04) mg/dL Estimated GFR ML/MIN Glucose (74-106) mg/dL Calcium (8.4-10.2) mg/dL Total Bilirubin (0.2-1.3) mg/dL AST (14-36) U/L ALT (0-35) U/L Alkaline Phosphatase (38-126) U/L Troponin I < 0.012 < 0.012 (0.000-0.034) ng/mL NT-Pro-B Natriuret Pep (0-900) pg/mL Serum Total Protein (6.3-8.2) g/dL Albumin (3.5-5.0) g/dL Influenza Type A Ag NEGATIVE (NEGATIVE) Influenza Type B Ag NEGATIVE (NEGATIVE) RSV (PCR) NEGATIVE (Negative) SARS-CoV-2 (PCR) NEGATIVE (NEGATIVE) 11/19/21 11/19/21 11/19/21 Range/Units 12:15 12:15 12:15 WBC 8.1 (4.0-10.5) x10^3/uL RBC 4.94 (4.1-5.4) x10^6/uL Hgb 13.7 (12.0-16.0) g/dL Hct 42.8 (35-47) % MCV 86.6 (78-100) fL MCH 27.7 (26-32) pg MCHC 32.0 (32-36) g/dL RDW 13.3 (11.5-14.0) % Plt Count 281 (150-450) x10^3/uL MPV 10.4 (7.5-11.0) fL Gran % 46.7 (36.0-66.0) % Immature Gran % (Auto) 0.2 (0.00-0.4) % Nucleat RBC Rel Count 0.0 (0.00-0.1) % Eos # (Auto) 0.14 (0-0.5) x10^3/uL Immature Gran # (Auto) 0.02 (0.00-0.03) x10^3u/L Absolute Lymphs (auto) 3.48 (1.0-4.6) x10^3/uL Absolute Monos (auto) 0.64 (0.0-1.3) x10^3/uL Absolute Nucleated RBC 0.00 (0.00-0.01) x10^3u/L Lymphocytes % 43.0 (24.0-44.0) % Monocytes % 7.9 (0.0-12.0) % Eosinophils % 1.7 (0.00-5.0) % Basophils % 0.5 (0.0-0.4) % Absolute Granulocytes 3.78 (1.4-6.9) x10^3/uL Basophils # 0.04 (0-0.4) x10^3/uL PT 10.2 (9.4-12.5) SECONDS INR 0.96 (0.8-3.0) APTT 22.8 L (25.1-36.5) SECONDS Sodium 140 (137-145) mmol/L Potassium 3.8 (3.5-5.1) mmol/L Chloride 99 (98-107) mmol/L Carbon Dioxide 22 (22-30) mmol/L Anion Gap 23.3 H (5-15) MEQ/L BUN 12 (7-17) mg/dL Creatinine 0.49 L (0.52-1.04) mg/dL Estimated GFR > 60.0 ML/MIN Glucose 365 H (74-106) mg/dL Calcium 8.6 (8.4-10.2) mg/dL Total Bilirubin 0.70 (0.2-1.3) mg/dL AST 29 (14-36) U/L ALT 26 (0-35) U/L Alkaline Phosphatase 103 (38-126) U/L Troponin I (0.000-0.034) ng/mL NT-Pro-B Natriuret Pep 20.7 (0-900) pg/mL Serum Total Protein 7.0 (6.3-8.2) g/dL Albumin 4.0 (3.5-5.0) g/dL Influenza Type A Ag (NEGATIVE) Influenza Type B Ag (NEGATIVE) RSV (PCR) (Negative) SARS-CoV-2 (PCR) (NEGATIVE) - Progress Progress Note: 11/19/21 15:11 Heart Score 3/Low risk 11/19/21 15:12 11/19/21 15:55 Well's score for PE 0.0 Counseled pt/family regarding: lab results, diagnosis, need for follow-up, rad results - Departure Departure Disposition: Home Clinical Impression: Chest pain Condition: Stable Critical Care Time: No Referrals: ALFREDITO CALDERÓN MD [Primary Care Provider] - Follow up/PCP as directed Instructions: Chest Pain (DC) Additional Instructions: Follow up with your family MD in 1-2 days Return to ER for increasing or sustained chest pain or shortness of breath
[2021-11-19 12:31] LABS: Absolute Neutrophil Ct (ANC) 3.78 x10^3/uL (1.4-6.9); Basophil (Absolute #) 0.04 x10^3/uL (0-0.4); Eosinophil % 1.7 % (0.00-5.0); Eosinophil (Absolute #) 0.14 x10^3/uL (0-0.5); Hematocrit 42.8 % (35-47); Hemoglobin 13.7 g/dL (12.0-16.0); Lymphocyte (Absolute #) 3.48 x10^3/uL (1.0-4.6); Mean Cell Volume 86.6 fL (78-100); Mean Corpuscular Hemoglobin 27.7 pg (26-32); Mean Platelet Volume 10.4 fL (7.5-11.0); Monocyte (Absolute #) 0.64 x10^3/uL (0.0-1.3); Monocytes % 7.9 % (0.0-12.0); Neutrophil % 46.7 % (36.0-66.0); Platelet Count 281 x10^3/uL (150-450); Red Blood Count 4.94 x10^6/uL (4.1-5.4); Red Cell Distribution Width 13.3 % (11.5-14.0); White Blood Count 8.1 x10^3/uL (4.0-10.5)
[2021-11-19 12:49] LABS: INR 0.96 (0.8-3.0); PROTIME 10.2 SECONDS (9.4-12.5); PTT 22.8 SECONDS (25.1-36.5)
[2021-11-19 12:57] LABS: ALKALINE PHOSPHATASE 103 U/L (38-126); ANION GAP 23.3 MEQ/L (5-15); BLOOD UREA NITROGEN 12 mg/dL (7-17); CHLORIDE 99 mmol/L (98-107); Calcium 8.6 mg/dL (8.4-10.2); Carbon Dioxide 22 mmol/L (22-30); Creatinine 1 0.49 mg/dL (0.52-1.04); EST GLOMERULAR FILTRATION RATE > 60.0 ML/MIN; Glucose 365 mg/dL (74-106); NT PRO BNP 20.7 pg/mL (0-900); Potassium 3.8 mmol/L (3.5-5.1); SGOT/AST 29 U/L (14-36); SGPT/ALT 26 U/L (0-35); SODIUM 140 mmol/L (137-145)
--- NOTE | 2021-11-19 13:10 | XRAY ---
ONE VIEW CHEST: [AP upright portable one view] COMPARISON: [None.] INDICATION: Shortness of breath. FINDINGS: [The heart size and contour are normal. The stephy and mediastinal structures appear intact. The lung caldwell are well expanded and appear clear. Pulmonary vascularity is normal. No pneumothorax or pleural effusion is seen. EKG leads are noted in place. The visualized bones appear grossly intact.] IMPRESSION: 1. No acute cardiopulmonary disease is seen.
[2021-11-19 13:31] LABS: INFLUENZA A NEGATIVE (NEGATIVE); INFLUENZA B NEGATIVE (NEGATIVE); RESPIRATORY SYNCTIAL VIRUS NEGATIVE (Negative); SARS-CoV-2 Xpert Express NEGATIVE (NEGATIVE)
[2021-11-19 15:04] VITALS: BP 110/80; PULSE 80; O2SAT 97
== END 2021-11-19 15:19 | disposition home or self-care (01) ==
LOC: ED 11:26
DX: R07.9 Chest pain, unspecified (principal); R06.00 Dyspnea, unspecified; E78.5 Hyperlipidemia, unspecified; E11.9 Type 2 diabetes mellitus without complications; Z79.899 Other long term (current) drug therapy
CPT/HCPCS: 0241U; 36000; 36415; 71045; 80053; 83880; 84484; 85025; 85610; 85730; 93005; 99284

== ENCOUNTER 2021-11-23 19:22 | Emergency (ER) | payer OTHER ==
[2021-11-23] MEDS ORDERED: TORAdol 30 mg Injection IV ONE (20:05)
[2021-11-23] MEDS ORDERED: PROTONIX 40 MG IV IV ONE ×2 (20:05→20:08)
[2021-11-23] MEDS ORDERED: Zofran 4 MG/2 ML VIAL IV ONE (20:05)
[2021-11-23] MEDS ORDERED: TORAdol 30 mg Injection ONE (20:08)
[2021-11-23] MEDS ORDERED: Zofran 4 MG/2 ML VIAL ONE (20:08)
[2021-11-23 20:16] LABS: Absolute Neutrophil Ct (ANC) 3.61 x10^3/uL (1.4-6.9); Basophil (Absolute #) 0.04 x10^3/uL (0-0.4); Eosinophil % 2.2 % (0.00-5.0); Eosinophil (Absolute #) 0.19 x10^3/uL (0-0.5); Hematocrit 41.6 % (35-47); Hemoglobin 13.5 g/dL (12.0-16.0); Lymphocyte (Absolute #) 3.92 x10^3/uL (1.0-4.6); Lymphocytes % 45.9 % (24.0-44.0); Mean Cell Volume 85.1 fL (78-100); Mean Corpuscular Hemoglobin 27.6 pg (26-32); Mean Corpuscular Hgb Concent. 32.5 g/dL (32-36); Mean Platelet Volume 10.3 fL (7.5-11.0); Monocyte (Absolute #) 0.76 x10^3/uL (0.0-1.3); Monocytes % 8.9 % (0.0-12.0); Neutrophil % 42.3 % (36.0-66.0); Platelet Count 310 x10^3/uL (150-450); Red Blood Count 4.89 x10^6/uL (4.1-5.4); Red Cell Distribution Width 13.2 % (11.5-14.0); White Blood Count 8.5 x10^3/uL (4.0-10.5)
[2021-11-23 20:21] LABS: Bacteria RARE /HPF (NEGATIVE); Calcium Oxalate Crystals 26-50 /HPF (NEGATIVE); Epithelial Cells RARE /HPF (FEW); Mucus SLIGHT /HPF (NEGATIVE); RBC 0-2 /HPF (0-2)
--- NOTE | 2021-11-23 20:22 | ERPHSYRPT ---
- History of Present Illness Time Seen by Provider: 11/23/21 20:05 Historian: patient Exam Limitations: no limitations Patient Subjective Stated Complaint: pt states "I have been having this side pain. Today I felt a hard spot. I had a colon resection and I'm worried I have a blockage or something." Triage Nursing Assessment: pt ambulated into the er; pt is axo x4; c/o abd pain; pt states 6/10 pain to left abd; pt c/o nausea; pt denies vomiting and diarrhea; abd is obese, round, soft; tenderness to LLQ/ left side; hyperactive bowel sounds in all quads; pt states pain radiates to epigastric region; pt states last BM this morning; vitals wnl Physician History: 51 years old female with a history of colon resection in the past presented in the ER with left-sided pain for the last couple of days dull aching mild to moderate, constant without any significant aggravating or relieving factors. Reports associated nausea without vomiting or diarrhea. No fever or chills reported. Timing/Duration: day(s) (2), constant, gradual onset, worse Quality: dullness Abdominal Pain Onset Location: LUQ, LLQ, flank Pain Radiation: no radiation Severity of Pain-Max: moderate Severity of Pain-Current: moderate Modifying Factors: Improves With: nothing Associated Symptoms: nausea Previous symptoms: no prior history Allergies/Adverse Reactions: codeine Allergy (Verified 11/19/21 11:28) Nausea Home Medications: Cyanocobalamin (Vitamin B-12) [Vitamin B12] 500 mcg PO DAILY 11/19/21 [History] Ezetimibe 10 mg [Zetia 10 MG] 1 tab PO DAILY 11/19/21 [History] Hx Tetanus, Diphtheria Vaccination/Date Given: Yes Hx Influenza Vaccination/Date Given: Yes Hx Pneumococcal Vaccination/Date Given: No Travel Risk - International Travel Have you traveled outside of the country in past 3 weeks: No - Coronavirus Screening Are you exhibiting any of the following symptoms?: No Close contact with a COVID-19 positive Pt in past 14-21 Days: No - Vaccine Status Have you recieved a Covid-19 vaccination: Yes 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[employer] - Vaccination Dates Date of 2cond Vaccination (if applicable): december 2020 - Review of Systems Constitutional: No Symptoms Eyes: No Symptoms Ears, Nose, & Throat: No Symptoms Respiratory: No Symptoms Cardiac: Orthopnea Abdominal/Gastrointestinal: Abdominal Pain, Nausea Genitourinary Symptoms: No Symptoms Musculoskeletal: No Symptoms Skin: No Symptoms Neurological: No Symptoms Endocrine: No Symptoms Hematologic/Lymphatic: No Symptoms Immunological/Allergic: No Symptoms - Past Medical History Pertinent Past Medical History: Yes Neurological History: No Pertinent History Cardiac History: High Cholesterol, Hypertension Respiratory History: No Pertinent History Endocrine Medical History: Diabetes Type II, Hypothyroidism Musculoskeletal History: Fractures GI Medical History: Gallbladder Disease Psycho-Social History: Depression Other Medical History: fractured coccyx (20+ years ago), cracked ribbed (R side), thyroid nodule - Past Surgical History Past Surgical History: Yes Gastrointestinal: Cholecystectomy, Colon Resection - Social History Smoking Status: Never smoker Exposure to second hand smoke: No Drug Use: none Patient Lives Alone: No Significant Family History: no pertinent family hx - Nursing Vital Signs Nursing Vital Signs: Initial Vital Signs Temperature 97.4 F 11/23/21 19:33 Pulse Rate 84 11/23/21 19:33 Respiratory Rate 18 11/23/21 19:33 Blood Pressure 127/78 11/23/21 19:33 O2 Sat by Pulse Oximetry 97 11/23/21 19:33 Pain Scale Pain Intensity 6 - Physical Exam General Appearance: no apparent distress, alert Eye Exam: PERRL/EOMI Ears, Nose, Throat Exam: normal ENT inspection Neck Exam: normal inspection, non-tender, supple, full range of motion Respiratory Exam: normal breath sounds, lungs clear Cardiovascular Exam: regular rate/rhythm, normal heart sounds Gastrointestinal/Abdomen Exam: soft, normal bowel sounds, tenderness (Left upper and lower quadrant.) Back Exam: normal inspection, normal range of motion Extremity Exam: normal inspection, normal range of motion Neurologic Exam: alert, 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, cooperative Skin Exam: normal color SpO2 Interpretation: normal SpO2: 97 O2 Delivery: Room Air Ordered Tests: Active Orders 24 hr Category Date Time Status IV Insertion STAT Care 11/23/21 20:05 Active NPO (ED) STAT Care 11/23/21 20:05 Active ABDOMEN AND PELVIS W/0 CONTRAS [CT] Stat Exams 11/23/21 20:05 Taken CBC W DIFF Stat Lab 11/23/21 20:05 Completed CMP Stat Lab 11/23/21 20:05 Completed CULTURE,URINE Stat Lab 11/23/21 20:16 Received LIPASE Stat Lab 11/23/21 20:05 Completed UA W/RFX CULTURE Stat Lab 11/23/21 20:16 Completed Medication Summary Generic Name Dose Route Start Last Admin Trade Name Loco PRN Reason Stop Dose Admin Ceftriaxone Sodium/Dextrose 2 g in 50 mls @ 100 mls/hr 11/23/21 20:49 Rocephin 2 Gm-D5w 50ml Bag IV 11/23/21 21:18 STAT STA Discontinued Medications Generic Name Dose Route Start Last Admin Trade Name Loco PRN Reason Stop Dose Admin Ketorolac Tromethamine 30 mg 11/23/21 20:05 11/23/21 20:09 Ketorolac Tromethamine 30 Mg/Ml Inj IV 11/23/21 20:06 30 mg STAT ONE Administration Ketorolac Tromethamine Confirm 11/23/21 20:08 Ketorolac Tromethamine 30 Mg/Ml Inj Administered 11/23/21 20:09 Dose 30 mg .ROUTE .STK-MED ONE Ondansetron HCl 4 mg 11/23/21 20:05 11/23/21 20:09 Ondansetron Hcl 4 Mg/2 Ml Vial IV 11/23/21 20:06 4 mg STAT ONE Administration Ondansetron HCl Confirm 11/23/21 20:08 Ondansetron Hcl 4 Mg/2 Ml Vial Administered 11/23/21 20:09 Dose 4 mg .ROUTE .STK-MED ONE Pantoprazole Sodium 40 mg 11/23/21 20:05 11/23/21 20:09 Pantoprazole 40 Mg Vial IV 11/23/21 20:06 40 mg STAT ONE Administration Pantoprazole Sodium Confirm 11/23/21 20:08 Pantoprazole 40 Mg Vial Administered 11/23/21 20:09 Dose 40 mg IV .STK-MED ONE Lab/Rad Data: Laboratory Result Diagrams 11/23/21 20:05 11/23/21 20:05 Laboratory Results 11/23/21 11/23/21 11/23/21 Range/Units 20:16 20:05 20:05 WBC 8.5 (4.0-10.5) x10^3/uL RBC 4.89 (4.1-5.4) x10^6/uL Hgb 13.5 (12.0-16.0) g/dL Hct 41.6 (35-47) % MCV 85.1 (78-100) fL MCH 27.6 (26-32) pg MCHC 32.5 (32-36) g/dL RDW 13.2 (11.5-14.0) % Plt Count 310 (150-450) x10^3/uL MPV 10.3 (7.5-11.0) fL Gran % 42.3 (36.0-66.0) % Immature Gran % (Auto) 0.2 (0.00-0.4) % Nucleat RBC Rel Count 0.0 (0.00-0.1) % Eos # (Auto) 0.19 (0-0.5) x10^3/uL Immature Gran # (Auto) 0.02 (0.00-0.03) x10^3u/L Absolute Lymphs (auto) 3.92 (1.0-4.6) x10^3/uL Absolute Monos (auto) 0.76 (0.0-1.3) x10^3/uL Absolute Nucleated RBC 0.00 (0.00-0.01) x10^3u/L Lymphocytes % 45.9 H (24.0-44.0) % Monocytes % 8.9 (0.0-12.0) % Eosinophils % 2.2 (0.00-5.0) % Basophils % 0.5 (0.0-0.4) % Absolute Granulocytes 3.61 (1.4-6.9) x10^3/uL Basophils # 0.04 (0-0.4) x10^3/uL Sodium 135 L (137-145) mmol/L Potassium 3.6 (3.5-5.1) mmol/L Chloride 102 (98-107) mmol/L Carbon Dioxide 24 (22-30) mmol/L Anion Gap 13.6 (5-15) MEQ/L BUN 14 (7-17) mg/dL Creatinine 0.42 L (0.52-1.04) mg/dL Estimated GFR > 60.0 ML/MIN Glucose 202 H (74-106) mg/dL Calcium 8.8 (8.4-10.2) mg/dL Total Bilirubin 0.80 (0.2-1.3) mg/dL AST 41 H (14-36) U/L ALT 27 (0-35) U/L Alkaline Phosphatase 114 (38-126) U/L Serum Total Protein 7.2 (6.3-8.2) g/dL Albumin 4.0 (3.5-5.0) g/dL Lipase 167 (23-300) U/L Urinalys Dipstick Clnc MAIN LAB Urine Color YELLOW (YELLOW) Urine Appearance CLEAR (CLEAR) Urine pH 5.0 (5-6) Ur Specific [place] 1.025 (1.005-1.025) POC Urine Protein Conf NEGATIVE (Negative) Urine Ketones SMALL-15 (NEGATIVE) Urine Nitrite NEGATIVE (NEGATIVE) Urine Bilirubin NEGATIVE (NEGATIVE) Urine Urobilinogen 0.2 (0-1) mg/dL Urine Leukocytes NEGATIVE (NEGATIVE) Urine WBC (Auto) 16-25 (0-5) /HPF Urine RBC (Auto) 0-2 (0-2) /HPF U Epithel Cells (Auto) RARE (FEW) /HPF Urine Bacteria (Auto) RARE (NEGATIVE) /HPF Urine RBC NEGATIVE (0-5) Hunter/ul Calcium Oxalate Crystal 26-50 (NEGATIVE) /HPF Urine Mucus (Auto) SLIGHT (NEGATIVE) /HPF Ur Culture Indicated? YES Urine Glucose 500 (NEGATIVE) mg/dL - Progress Progress: improved, re-examined Progress Note: 11/23/21 20:54 51 years old is evaluated for left-sided abdominal pain. She is given sy mptomatic treatment, on reevaluation feeling better. She has normal white count, grossly unremarkable chemistries except for glucose of 202. Does have UTI and given a dose of antibiotic. CT abdomen pelvis negative for any acute findings. We will continue with antibiotics to go home. Discussed signs symptoms of worsening needing return to ER which she seems understanding. Stable for discharge. Counseled pt/family regarding: lab results, diagnosis, need for follow-up, rad results - Departure Departure Disposition: Home Clinical Impression: Left sided abdominal pain, Acute UTI Condition: Stable Critical Care Time: No Referrals: ALFREDITO CALDERÓN MD [Primary Care Provider] - Follow up/PCP as directed (1-2 days for reevaluation) Instructions: Severe Abdominal Pain, Adult (DC), Urinary Tract Infection, Adult (DC) Additional Instructions: Take Tylenol/ibuprofen as needed. Drink plenty of fluids. Follow-up with primary care for reevaluation. Return to ER for abdominal pain or if develop intractable nausea vomiting/fever chills etc. Prescriptions: Cefpodoxime Proxetil 200 mg [Vantin 200 mg] 200 mg PO BID #14 tablet
[2021-11-23 20:23] LABS: Appearance CLEAR (CLEAR); Bilirubin NEGATIVE (NEGATIVE); Glucose 500 mg/dL (NEGATIVE); Ketones SMALL-15 (NEGATIVE); Nitrite NEGATIVE (NEGATIVE); Protein,Urine Dip NEGATIVE (Negative); RBC NEGATIVE Ery/ul (0-5); Specific Gravity 1.025 (1.005-1.025); Urine Cultured Indicated? YES; Urobilinogen 0.2 mg/dL (0-1)
[2021-11-23 20:24] LABS: Dipstick done @ ? MAIN LAB
[2021-11-23 20:29] LABS: ALKALINE PHOSPHATASE 114 U/L (38-126); ANION GAP 13.6 MEQ/L (5-15); BLOOD UREA NITROGEN 14 mg/dL (7-17); CHLORIDE 102 mmol/L (98-107); Calcium 8.8 mg/dL (8.4-10.2); Carbon Dioxide 24 mmol/L (22-30); Creatinine 1 0.42 mg/dL (0.52-1.04); EST GLOMERULAR FILTRATION RATE > 60.0 ML/MIN; Glucose 202 mg/dL (74-106); LIPASE 167 U/L (23-300); Potassium 3.6 mmol/L (3.5-5.1); SGOT/AST 41 U/L (14-36); SGPT/ALT 27 U/L (0-35); SODIUM 135 mmol/L (137-145); Total Protein 7.2 g/dL (6.3-8.2)
[2021-11-23] MEDS ORDERED: ROCEPHIN 2 Gm-D5w 50ML BAG** 2 G/50 ML IVPB IV STA (20:49)
[2021-11-23] MEDS ORDERED: ROCEPHIN 2 Gm-D5w 50ML BAG** 2 G/50 ML IVPB IV ONE (21:06)
[2021-11-23 21:26] VITALS: BP 114/65; PULSE 77; O2SAT 94
--- NOTE | 2021-11-24 09:21 | XRAY ---
Indication: Left abdomen pain 2-3 days. Nausea. Multiple contiguous axial images obtained through the abdomen and pelvis without contrast. Comparison: April 14, 2021 Lung bases clear of infiltrate and effusion. Heart not enlarged. Stomach is distended with food/fluid. Noncontrasted stomach and bowel loops nonobstructed with normal appendix. Again intact transverse colon anastomosis, minimal sigmoid diverticulosis, fatty liver, splenic calcified granulomas, and uterine IUD. Gallbladder contracted without gallstones. No free fluid/air. Remaining liver, pancreas, spleen, adrenal glands, kidneys, ureters, bladder, uterus, and aorta unremarkable for noncontrast exam. Osseous structures intact again with mild degenerative changes throughout the thoracolumbar lumbar spine and minimal grade 1 L4 spondylolisthesis. Impression: 1. Again sigmoid diverticulosis, fatty liver, chronic bony findings, and old granulomatous disease. 2. Remaining CT abdomen/pelvis without contrast exam is again negative. Comment: Preliminary interpretation made by [facility]. No critical discrepancy.
== END 2021-11-23 21:48 | disposition home or self-care (01) ==
LOC: ED 19:22
DX: N39.0 Urinary tract infection, site not specified (principal); R10.12 Left upper quadrant pain; R10.32 Left lower quadrant pain; R11.0 Nausea; E78.5 Hyperlipidemia, unspecified; I10 Essential (primary) hypertension; E11.9 Type 2 diabetes mellitus without complications; Z79.899 Other long term (current) drug therapy
CPT/HCPCS: 36000; 36415; 74176; 80053; 81015; 83690; 85025; 87086; 96365; 96374; 96375; 99284; J0696; J1885; J2405

== ENCOUNTER 2022-01-12 05:31 | Emergency (ER) | payer OTHER ==
--- NOTE | 2022-01-12 06:28 | ERPHSYRPT ---
- History of Present Illness Time Seen by Provider: 01/12/22 05:45 Source: patient Patient Subjective Stated Complaint: pt states she fell a few hours ago and her rt foot, lt shoulder hurts Triage Nursing Assessment: pt ambulated to room, no difficulties noted. pt alert and oriented, rating pain 6/10. abrasion noted to top of rt foot. blateral pedal pulse +2, no edema noted. no bruise noted to lt shoulder, pt unable to move lt arm above head Physician History: Patient is a 51-year-old female who this morning about 130 got out of bed to go to the restroom when she tripped and fell she denies any injury other than to her right foot which suffered an abrasion and has some pain and swelling in her left shoulder which hurts when she tries to abduct it. She denies any loss of consciousness. She specifically denies any head chest or abdominal pain. Occurred: this morning Reason for Fall: tripped Injuries/Pain Location: upper extremity (Left shoulder), lower extremity (Right foot) Loss of Consciousness: no loss of consciousness Quality: aching, throbbing Severity of Pain-Max: moderate Severity of Pain-Current: moderate Modifying Factors: Improves With: movement Associated Symptoms (Fall): extremity injury Allergies/Adverse Reactions: codeine Allergy (Verified 01/12/22 05:54) Nausea Home Medications: Cyanocobalamin (Vitamin B-12) [Vitamin B12] 500 mcg PO DAILY 11/19/21 [History] Ezetimibe 10 mg [Zetia 10 MG] 1 tab PO DAILY 11/19/21 [History] Amlodipine Besylate 2.5 mg PO DAILY 01/12/22 [History] Ergocalciferol (Vitamin D2) [Vitamin D2] 1 cap PO DAILY 01/12/22 [History] Ferrous Gluconate 324 mg PO DAILY 01/12/22 [History] Ibuprofen 800 mg PO TIDPRN PRN 01/12/22 [History] Insulin Glargine,Hum.rec.anlog [Basaglar Kwikpen U-100] 1 unit SQ DAILY 01/12/22 [History] Propranolol HCl 40 mg PO BID 01/12/22 [History] Hx Tetanus, Diphtheria Vaccination/Date Given: No Hx Influenza Vaccination/Date Given: Yes Hx Pneumococcal Vaccination/Date Given: Yes Travel Risk - International Travel Have you traveled outside of the country in past 3 weeks: No - Coronavirus Screening Are you exhibiting any of the following symptoms?: No - Vaccine Status Have you recieved a Covid-19 vaccination: Yes 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[employer] - Vaccination Dates Date of 2cond Vaccination (if applicable): 06/2021 - Review of Systems Constitutional: No Fever, No Chills Eyes: No Symptoms Ears, Nose, & Throat: No Symptoms Respiratory: No Cough, No Dyspnea Cardiac: No Chest Pain, No Edema, No Syncope Abdominal/Gastrointestinal: No Abdominal Pain, No Nausea, No Vomiting, No Diarrhea Genitourinary Symptoms: No Dysuria Musculoskeletal: Joint Pain, Joint Swelling, No Back Pain, No Neck Pain Skin: Other (Abrasion), No Rash Neurological: No Dizziness, No Focal Weakness, No Sensory Changes Psychological: No Symptoms Endocrine: No Symptoms All Other Systems: Reviewed and Negative - Past Medical History Pertinent Past Medical History: Yes Neurological History: Migraines Cardiac History: High Cholesterol, Hypertension Respiratory History: No Pertinent History Endocrine Medical History: Diabetes Type II, Hypothyroidism Musculoskeletal History: Fractures GI Medical History: Gallbladder Disease History: No Pertinent History Psycho-Social History: Depression Female Reproductive Disorders: No Pertinent History Other Medical History: fractured coccyx (20+ years ago), cracked ribbed (R side), thyroid nodule - Past Surgical History Past Surgical History: Yes Neuro Surgical History: No Pertinent History Cardiac: No Pertinent History Respiratory: No Pertinent History Gastrointestinal: Cholecystectomy, Colon Resection Genitourinary: No Pertinent History Musculoskeletal: No Pertinent History Female Surgical History: No Pertinent History - Social History Smoking Status: Never smoker Exposure to second hand smoke: No Drug Use: none Patient Lives Alone: Yes Significant Family History: no pertinent family hx - Nursing Vital Signs Nursing Vital Signs: Initial Vital Signs Temperature 98.2 F 01/12/22 05:32 Pulse Rate 86 01/12/22 05:32 Respiratory Rate 20 01/12/22 05:32 Blood Pressure 120/90 01/12/22 05:32 O2 Sat by Pulse Oximetry 95 01/12/22 05:32 Pain Scale Pain Intensity 6 - [place] Coma Score Best Eye Response ([place]ignon): (4) open spontaneously Best Verbal Response ([place]): (5) oriented Best Motor Response ([place]): (6) obeys commands [place] Total: 15 - Physical Exam General Appearance: mild distress Head Injury: no evidence of injury Eye Exam: PERRL/EOMI ENT Exam: airway nml Neck Exam: normal inspection, No tenderness Respiratory/Chest Exam: normal breath sounds, No chest tenderness, No respiratory distress Cardiovascular Exam: normal heart sounds, regular rate/rhythm Gastrointestinal Exam: soft, No tenderness, No distention, No guarding, No ecchymosis Back Exam: normal inspection, No vertebral tenderness Extremity Exam: other (The right foot is tender over the proximal lateral aspect there is an abrasion present. Examination of the left shoulder shows some posterior tenderness no obvious deformity neurovascular tendon are intact for all extremities.) SpO2: 95 - Course Nursing assessment & vital signs reviewed: Yes - Radiology Exams Right Foot X-ray Interpretation: Reviewed by me, Negative Left Shoulder X-ray Interpretation: Reviewed by me, Negative Ordered Tests: Active Orders 24 hr Category Date Time Status FOOT (2 VIEWS) Stat Exams 01/12/22 Ordered SHOULDER Stat Exams 01/12/22 06:20 Taken - Departure Departure Disposition: Home Clinical Impression: Abrasion, right ankle, initial encounter, Left shoulder strain, Sprain of right foot Condition: Stable Critical Care Time: No Referrals: ALFREDITO CALDERÓN MD [Primary Care Provider] - Follow up/PCP as directed Instructions: Shoulder Sprain (DC) Prescriptions: Tramadol HCl 50 mg [Ultram 50 mg] 50 mg PO Q6H 3 Days #12 tablet
[2022-01-12 06:35] VITALS: BP 119/86; PULSE 83
[2022-01-12 06:36] VITALS: O2SAT 95
--- NOTE | 2022-01-13 22:32 | XRAY ---
Exam: 3 views of the left shoulder from 01/12/2022. Comparison: [None.] Indication: Patient fell striking left shoulder; complains of pain. Findings: AP internal rotation, AP external rotation, and Y views of the left shoulder were obtained. I see no acute fracture or dislocation. There is minimal degenerative change of the left acromioclavicular joint. No abnormal soft tissue calcifications are seen adjacent to the left humeral head. The glenohumeral joint appears grossly unremarkable, although a joint en face view was not obtained. The visualized left clavicle appears intact. Impression: 1. No acute left shoulder fracture or dislocation is seen.
--- NOTE | 2022-01-13 22:41 | XRAY ---
Exam: 2 views of the right foot from 01/12/2022. Comparison: [None.] Indication: Patient fell in the middle the night; complains of anterior lateral right foot pain. Findings: AP and lateral images of the right foot were obtained. There is a tiny calcification adjacent to the dorsal aspect of the distal talus on the lateral image which is suspicious for a small cortical avulsion fracture injury. No other fracture or dislocation is seen. The base of the right fifth metatarsal appears intact. There is a small calcification with a corticated margin adjacent to the distal tip of the fibula which probably represents an old finding. No adjacent soft tissue swelling is seen. There is a moderate-sized plantar right calcaneal spur. A large posterior calcaneal enthesophyte is present. Impression: 1. Findings suggestive of a subtle cortical avulsion fracture injury arising off the dorsal aspect of the distal talus, seen only on the lateral image. 2. Plantar and posterior right calcaneal spurring, as discussed.
== END 2022-01-12 06:51 | disposition home or self-care (01) ==
LOC: ED 05:31
DX: S92.151A Displaced avulsion fracture (chip fracture) of right talus, initial encounter for closed fracture (principal); S90.511A Abrasion, right ankle, initial encounter; S46.912A Strain of unspecified muscle, fascia and tendon at shoulder and upper arm level, left arm, initial encounter; S93.601A Unspecified sprain of right foot, initial encounter; W01.0XXA Fall on same level from slipping, tripping and stumbling without subsequent striking against object, initial encounter; Y93.01 Activity, walking, marching and hiking; Y92.003 Bedroom of unspecified non-institutional (private) residence as the place of occurrence of the external cause; M79.671 Pain in right foot; M25.512 Pain in left shoulder; E78.5 Hyperlipidemia, unspecified; I10 Essential (primary) hypertension; E11.9 Type 2 diabetes mellitus without complications; Z79.4 Long term (current) use of insulin; Z79.899 Other long term (current) drug therapy; Z79.891 Long term (current) use of opiate analgesic
CPT/HCPCS: 73030; 73620; 99283

== ENCOUNTER 2022-03-12 11:03 | Emergency (ER) | payer OTHER ==
[2022-03-12 11:27] VITALS: BP 149/98
[2022-03-12] MEDS ORDERED: PROTONIX 40 MG IV IV ONE ×2 (11:37→11:56)
[2022-03-12] MEDS ORDERED: Zofran 4 MG/2 ML VIAL IV ONE (11:37)
[2022-03-12] MEDS ORDERED: Sodium Chloride 0.9% 1000 ML 1,000 ML IV STA (11:37)
--- NOTE | 2022-03-12 11:44 | ERPHSYRPT ---
- History of Present Illness Time Seen by Provider: 03/12/22 11:12 Historian: patient Exam Limitations: no limitations Patient Subjective Stated Complaint: C/O nausea and vomiting for the past few weeks. Triage Nursing Assessment: Patient ambulated back to ED without difficulties. No SOB. She is alert and oriented. No vomiting noted during assessment. Bowel sounds present. No increased abdominal pain with palpation. Physician History: 52-year-old female with a history of diabetes mellitus, hypertension, hyperlipidemia, morbid obesity presented to ER with chief complaint of generalized abdominal pain off and on for almost 1 month with associated nausea, decreased oral intake and loose stool 3-4 every day. Reports feeling weak fatigued tired and dehydrated. No fever or chills reported. Timing/Duration: week(s) (4), intermittent, gradual onset, worse Activities at Onset: none Quality: cramping Abdominal Pain Onset Location: generalized abdomen Pain Radiation: no radiation Severity of Pain-Max: moderate Severity of Pain-Current: mild Modifying Factors: Improves With: nothing Associated Symptoms: diarrhea, loss of appetite, nausea Previous symptoms: no prior history Allergies/Adverse Reactions: codeine Allergy (Verified 03/12/22 11:16) Nausea Home Medications: Cyanocobalamin (Vitamin B-12) [Vitamin B12] 500 mcg PO DAILY 11/19/21 [History] Ezetimibe 10 mg [Zetia 10 MG] 1 tab PO DAILY 11/19/21 [History] Amlodipine Besylate 2.5 mg PO DAILY 01/12/22 [History] Ergocalciferol (Vitamin D2) [Vitamin D2] 1 cap PO DAILY 01/12/22 [History] Ferrous Gluconate 324 mg PO DAILY 01/12/22 [History] Ibuprofen 800 mg PO TIDPRN PRN 01/12/22 [History] Insulin Glargine,Hum.rec.anlog [Basaglar Kwikpen U-100] 1 unit SQ DAILY 01/12/22 [History] Propranolol HCl 40 mg PO BID 01/12/22 [History] Ertugliflozin Pidolate [Steglatro] 1 tab PO DAILY 03/12/22 [History] Hx Tetanus, Diphtheria Vaccination/Date Given: Yes Hx Influenza Vaccination/Date Given: No Hx Pneumococcal Vaccination/Date Given: No Immunizations Up to Date: Yes Travel Risk - International Travel Have you traveled outside of the country in past 3 weeks: No - Coronavirus Screening Are you exhibiting any of the following symptoms?: No Close contact with a COVID-19 positive Pt in past 14-21 Days: No - Vaccine Status Have you recieved a Covid-19 vaccination: Yes 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[employer] - Vaccination Dates Date of 2cond Vaccination (if applicable): 06/2021 - Review of Systems Constitutional: Fatigue, Weakness Eyes: No Symptoms Ears, Nose, & Throat: No Symptoms Respiratory: No Symptoms Cardiac: No Symptoms Abdominal/Gastrointestinal: Abdominal Pain, Nausea, Diarrhea Genitourinary Symptoms: No Symptoms Musculoskeletal: No Symptoms Skin: No Symptoms Neurological: No Symptoms Psychological: No Symptoms Endocrine: No Symptoms Hematologic/Lymphatic: No Symptoms Immunological/Allergic: No Symptoms - Past Medical History Pertinent Past Medical History: Yes Neurological History: Migraines Cardiac History: High Cholesterol, Hypertension Respiratory History: No Pertinent History Endocrine Medical History: Diabetes Type II, Hypothyroidism Musculoskeletal History: Fractures GI Medical History: Gallbladder Disease History: No Pertinent History Psycho-Social History: Depression Female Reproductive Disorders: No Pertinent History Other Medical History: fractured coccyx (20+ years ago), cracked ribbed (R side), thyroid nodule - Past Surgical History Past Surgical History: Yes Neuro Surgical History: No Pertinent History Cardiac: No Pertinent History Respiratory: No Pertinent History Gastrointestinal: Cholecystectomy, Colon Resection Genitourinary: No Pertinent History Musculoskeletal: No Pertinent History Female Surgical History: No Pertinent History - Social History Smoking Status: Never smoker Exposure to second hand smoke: No Drug Use: none Patient Lives Alone: Yes Significant Family History: no pertinent family hx - Nursing Vital Signs Nursing Vital Signs: Initial Vital Signs Temperature 97.6 F 03/12/22 11:18 Pulse Rate 90 03/12/22 11:18 Respiratory Rate 18 03/12/22 11:18 Blood Pressure 149/98 03/12/22 11:18 O2 Sat by Pulse Oximetry 97 03/12/22 11:18 Pain Scale Pain Intensity 5 - Physical Exam General Appearance: no apparent distress, alert Eye Exam: PERRL/EOMI Ears, Nose, Throat Exam: normal ENT inspection, pharynx normal Neck Exam: normal inspection, supple, full range of motion Respiratory Exam: normal breath sounds, lungs clear Cardiovascular Exam: regular rate/rhythm, normal heart sounds Gastrointestinal/Abdomen Exam: soft, normal bowel sounds, tenderness (Minimal tenderness on the right upper and lower quadrants without guarding or rebound tenderness) Back Exam: normal inspection Extremity Exam: normal inspection, normal range of motion Neurologic Exam: alert, 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, cooperative, 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 tested Skin Exam: normal color SpO2 Interpretation: normal SpO2: 97 O2 Delivery: Room Air Ordered Tests: Active Orders 24 hr Category Date Time Status IV Insertion STAT Care 03/12/22 11:37 Active NPO (ED) STAT Care 03/12/22 11:37 Active ABDOMEN AND PELVIS W/0 CONTRAS [CT] Stat Exams 03/12/22 11:38 Completed CBC W DIFF Stat Lab 03/12/22 Completed CMP Stat Lab 03/12/22 Completed LIPASE Stat Lab 03/12/22 Completed TSH, 3RD Generation Stat Lab 03/12/22 Completed UA W/RFX CULTURE Stat Lab 03/12/22 11:10 Completed Medication Summary Generic Name Dose Route Start Last Admin Trade Name Freq PRN Reason Stop Dose Admin Ceftriaxone Sodium/Dextrose 2 g in 50 mls @ 100 mls/hr 03/12/22 13:41 03/12/22 13:58 Rocephin 2 Gm-D5w 50ml Bag IV 03/12/22 14:10 100 mls/hr STAT STA 100 mls/hr Administration Discontinued Medications Generic Name Dose Route Start Last Admin Trade Name Freq PRN Reason Stop Dose Admin Sodium Chloride 1,000 mls @ 999 mls/hr 03/12/22 11:37 03/12/22 13:35 Sodium Chloride 0.9% 1000 Ml IV 03/12/22 12:37 Infused .Q1H1M STA Infusion Sodium Chloride Confirm 03/12/22 11:56 Sodium Chloride 0.9% 1000 Ml Administered 03/12/22 11:57 Dose 1,000 mls @ ud .ROUTE .STK-MED ONE Ceftriaxone Sodium/Dextrose Confirm 03/12/22 13:55 Rocephin 2 Gm-D5w 50ml Bag Administered 03/12/22 13:56 Dose 2 g in 50 mls @ ud IV .STK-MED ONE Ondansetron HCl 4 mg 03/12/22 11:37 03/12/22 12:16 Ondansetron Hcl 4 Mg/2 Ml Vial IV 03/12/22 11:38 4 mg STAT ONE Administration Ondansetron HCl Confirm 03/12/22 11:56 Ondansetron Hcl 4 Mg/2 Ml Vial Administered 03/12/22 11:57 Dose 4 mg .ROUTE .STK-MED ONE Pantoprazole Sodium 40 mg 03/12/22 11:37 03/12/22 12:16 Pantoprazole 40 Mg Vial IV 03/12/22 11:38 40 mg STAT ONE Administration Pantoprazole Sodium Confirm 03/12/22 11:56 Pantoprazole 40 Mg Vial Administered 03/12/22 11:57 Dose 40 mg IV .STK-MED ONE Lab/Rad Data: Laboratory Result Diagrams 03/12/22 Unknown 03/12/22 Unknown Laboratory Results 03/12/22 03/12/22 03/12/22 Range/Units Unknown Unknown 11:10 WBC 9.9 (4.0-10.5) x10^3/uL RBC 4.88 (4.1-5.4) x10^6/uL Hgb 13.7 (12.0-16.0) g/dL Hct 42.4 (35-47) % MCV 86.9 (78-100) fL MCH 28.1 (26-32) pg MCHC 32.3 (32-36) g/dL RDW 13.2 (11.5-14.0) % Plt Count 293 (150-450) x10^3/uL MPV 10.3 (7.5-11.0) fL Gran % 45.7 (36.0-66.0) % Immature Gran % (Auto) 0.6 H (0.00-0.4) % Nucleat RBC Rel Count 0.0 (0.00-0.1) % Eos # (Auto) 0.14 (0-0.5) x10^3/uL Immature Gran # (Auto) 0.06 H (0.00-0.03) x10^3u/L Absolute Lymphs (auto) 4.17 (1.0-4.6) x10^3/uL Absolute Monos (auto) 0.96 (0.0-1.3) x10^3/uL Absolute Nucleated RBC 0.00 (0.00-0.01) x10^3u/L Lymphocytes % 42.2 (24.0-44.0) % Monocytes % 9.7 (0.0-12.0) % Eosinophils % 1.4 (0.00-5.0) % Basophils % 0.4 (0.0-0.4) % Absolute Granulocytes 4.51 (1.4-6.9) x10^3/uL Basophils # 0.04 (0-0.4) x10^3/uL Sodium 136 L (137-145) mmol/L Potassium 3.4 L (3.5-5.1) mmol/L Chloride 107 (98-107) mmol/L Carbon Dioxide 20 L (22-30) mmol/L Anion Gap 12.3 (5-15) MEQ/L BUN 10 (7-17) mg/dL Creatinine 0.46 L (0.52-1.04) mg/dL Estimated GFR > 60.0 ML/MIN Glucose 290 H (74-106) mg/dL Calcium 8.6 (8.4-10.2) mg/dL Total Bilirubin 0.80 (0.2-1.3) mg/dL AST 22 (14-36) U/L ALT 24 (0-35) U/L Alkaline Phosphatase 108 (38-126) U/L Serum Total Protein 6.8 (6.3-8.2) g/dL Albumin 3.8 (3.5-5.0) g/dL Lipase 817 H (23-300) U/L TSH 3rd Generation 2.000 (0.47-4.68) mIU/L Urinalys Dipstick Clnc MAIN LAB Urine Color YELLOW (YELLOW) Urine Appearance CLEAR (CLEAR) Urine pH 5.0 (5-6) Ur Specific [place] 1.015 (1.005-1.025) POC Urine Protein Conf NEGATIVE (Negative) Urine Ketones NEGATIVE (NEGATIVE) Urine Nitrite NEGATIVE (NEGATIVE) Urine Bilirubin NEGATIVE (NEGATIVE) Urine Urobilinogen 0.2 (0-1) mg/dL Urine Leukocytes NEGATIVE (NEGATIVE) Urine WBC (Auto) 11-15 (0-5) /HPF Urine RBC (Auto) 0-2 (0-2) /HPF U Epithel Cells (Auto) RARE (FEW) /HPF Urine Bacteria (Auto) RARE (NEGATIVE) /HPF Urine RBC NEGATIVE (0-5) Hunter/ul Urine Mucus (Auto) SLIGHT (NEGATIVE) /HPF Ur Culture Indicated? NO Urine Glucose >=1000 (NEGATIVE) mg/dL - Progress Progress: improved Progress Note: 03/12/22 14:00 She is given fluids along with symptomatic treatment, on reevaluation her symptoms are improved. She is not nauseated anymore. No abdominal tenderness on repeated evaluation. She has normal white count, chemistries showed some element of dehydration with low bicarb. Normal gap and blood sugar of 290s. Patient is not in DKA. Does have some element of UTI and given a dose of Rocephin in here and will continue with Keflex to go home. I have obtained CT abdomen pelvis without contrast which is essentially negative for any acute findings. Patient lipase is in 800s, no definitive tenderness in epigastrium on repeated evaluation. Her nausea and pain could be from early onset pancreatitis. At this point I do not think patient needs to be admitted, discussed with patient about clear liquids for next 24 to 48 hours and taking Tylenol/ibuprofen and will give Zofran for symptomatic relief. Discussed signs symptoms of worsening needing return to ER which she seems understanding. Stable for discharge. Counseled pt/family regarding: lab results, diagnosis, need for follow-up, rad results - Departure Departure Disposition: Home Clinical Impression: Gastroenteritis, Elevated lipase, Acute UTI Condition: Stable Critical Care Time: No Referrals: ALFREDITO CALDERÓN MD [Primary Care Provider] - Follow Up with PCP/3 days Instructions: Pancreatitis (DC) Additional Instructions: Take Tylenol/ibuprofen as needed for pain. Drink plenty of fluids to keep yourself well-hydrated. Take clear liquids for next 24 to 48 hours and slowly introduce soft diet followed by regular. Try to take low fat diet. Return to ER for worsening pain, nausea, vomiting. Monitor your blood sugar regularly and return for any worsening as well. Prescriptions: Ondansetron ODT 4 MG [Zofran Odt 4 mg] 4 mg PO Q6H PRN PRN #7 tablet PRN Reason: Nausea Cephalexin Mh 500 mg [Keflex 500 mg] 500 mg PO TID #21 cap
[2022-03-12] MEDS ORDERED: Sodium Chloride 0.9% 1000 ML 1,000 ML ONE (11:56)
[2022-03-12] MEDS ORDERED: Zofran 4 MG/2 ML VIAL ONE (11:56)
--- NOTE | 2022-03-12 12:05 | XRAY ---
Indication: Abdomen pain, nausea, and diarrhea one month. Multiple contiguous axial images obtained through the abdomen and pelvis without contrast. Comparison: November 23, 2021 Lung bases remain clear. Heart not enlarged. Stomach is again distended with food/fluid with normal appendix. Again cholecystectomy, intact transverse colon anastomosis, sigmoid diverticulosis, fatty liver, splenic calcified granulomas, and uterine IUD. No free fluid/air. Remaining liver, pancreas, spleen, adrenal glands, kidneys, ureters, bladder, uterus, and aorta appear unremarkable for noncontrast exam. Osseous structures intact again with mild multilevel lumbar degenerative spondylosis and grade 1 L4 listhesis. Impression: 1. Again sigmoid diverticulosis, fatty liver, chronic bony findings, uterine IUD, and old granulomatous disease. 2. Remaining CT abdomen/pelvis without contrast exam continues to be negative.
[2022-03-12 12:06] LABS: Appearance CLEAR (CLEAR); Bacteria RARE /HPF (NEGATIVE); Bilirubin NEGATIVE (NEGATIVE); Dipstick done @ ? MAIN LAB; Epithelial Cells RARE /HPF (FEW); Glucose >=1000 mg/dL (NEGATIVE); Ketones NEGATIVE (NEGATIVE); Mucus SLIGHT /HPF (NEGATIVE); Nitrite NEGATIVE (NEGATIVE); Protein,Urine Dip NEGATIVE (Negative); RBC 0-2 /HPF (0-2); RBC NEGATIVE Ery/ul (0-5); Specific Gravity 1.015 (1.005-1.025); Urobilinogen 0.2 mg/dL (0-1)
[2022-03-12 12:07] LABS: Urine Cultured Indicated? NO
[2022-03-12 12:59] LABS: Absolute Neutrophil Ct (ANC) 4.51 x10^3/uL (1.4-6.9); Basophil (Absolute #) 0.04 x10^3/uL (0-0.4); Eosinophil % 1.4 % (0.00-5.0); Eosinophil (Absolute #) 0.14 x10^3/uL (0-0.5); Hematocrit 42.4 % (35-47); Hemoglobin 13.7 g/dL (12.0-16.0); Lymphocyte (Absolute #) 4.17 x10^3/uL (1.0-4.6); Lymphocytes % 42.2 % (24.0-44.0); Mean Cell Volume 86.9 fL (78-100); Mean Corpuscular Hemoglobin 28.1 pg (26-32); Mean Corpuscular Hgb Concent. 32.3 g/dL (32-36); Mean Platelet Volume 10.3 fL (7.5-11.0); Monocyte (Absolute #) 0.96 x10^3/uL (0.0-1.3); Monocytes % 9.7 % (0.0-12.0); Neutrophil % 45.7 % (36.0-66.0); Platelet Count 293 x10^3/uL (150-450); Red Blood Count 4.88 x10^6/uL (4.1-5.4); Red Cell Distribution Width 13.2 % (11.5-14.0); White Blood Count 9.9 x10^3/uL (4.0-10.5)
[2022-03-12] MEDS ORDERED: ROCEPHIN 2 Gm-D5w 50ML BAG** 2 G/50 ML IVPB IV STA (13:41)
[2022-03-12 13:43] LABS: ALBUMIN 3.8 g/dL (3.5-5.0); ALKALINE PHOSPHATASE 108 U/L (38-126); ANION GAP 12.3 MEQ/L (5-15); BLOOD UREA NITROGEN 10 mg/dL (7-17); CHLORIDE 107 mmol/L (98-107); Calcium 8.6 mg/dL (8.4-10.2); Carbon Dioxide 20 mmol/L (22-30); Creatinine 1 0.46 mg/dL (0.52-1.04); EST GLOMERULAR FILTRATION RATE > 60.0 ML/MIN; Glucose 290 mg/dL (74-106); LIPASE 817 U/L (23-300); Potassium 3.4 mmol/L (3.5-5.1); SGOT/AST 22 U/L (14-36); SGPT/ALT 24 U/L (0-35); SODIUM 136 mmol/L (137-145); Total Protein 6.8 g/dL (6.3-8.2)
[2022-03-12] MEDS ORDERED: ROCEPHIN 2 Gm-D5w 50ML BAG** 2 G/50 ML IVPB IV ONE (13:55)
[2022-03-12 14:14] VITALS: PULSE 83; O2SAT 95
== END 2022-03-12 14:19 | disposition home or self-care (01) ==
LOC: ED 11:03
DX: N39.0 Urinary tract infection, site not specified (principal); K52.9 Noninfective gastroenteritis and colitis, unspecified; R79.89 Other specified abnormal findings of blood chemistry; R10.84 Generalized abdominal pain; R11.0 Nausea; R53.83 Other fatigue; E78.5 Hyperlipidemia, unspecified; I10 Essential (primary) hypertension; E11.9 Type 2 diabetes mellitus without complications; Z79.4 Long term (current) use of insulin; Z79.84 Long term (current) use of oral hypoglycemic drugs; Z79.899 Other long term (current) drug therapy
CPT/HCPCS: 36000; 36415; 74176; 80053; 81015; 83690; 84443; 85025; 96374; 96375; 99284; J0696; J2405

== ENCOUNTER 2022-04-05 12:51 | Emergency (ER) | payer OTHER ==
--- NOTE | 2022-04-05 13:45 | XRAY ---
Indication: Short of breath and congestion one month. Pneumonia. Comparison: November 19, 2021 Portable chest remains inflated and clear. Heart not enlarged. Bony thorax intact again with mild degenerative changes. No new/acute findings.
[2022-04-05 14:10] VITALS: BP 97/66; PULSE 72; O2SAT 96
[2022-04-05 14:20] LABS: INFLUENZA A NEGATIVE (NEGATIVE); INFLUENZA B NEGATIVE (NEGATIVE); RESPIRATORY SYNCTIAL VIRUS NEGATIVE (Negative); SARS-CoV-2 Xpert Express NEGATIVE (NEGATIVE)
--- NOTE | 2022-04-05 14:38 | ERPHSYRPT ---
- History of Present Illness Time Seen by Provider: 04/05/22 13:20 Source: patient Exam Limitations: no limitations Patient Subjective Stated Complaint: Pt states "For the past 4 weeks I have been to [facility] several times, I have been through antibiotic treatment, steroid treatment and I am still coughing and I feel congested in my chest." Triage Nursing Assessment: Pt presented alert and oriented X 3, skin pwd. Pt ambulates with an upright steady gait, able to speak in clear full sentences pt in no apparent respiratory distress. Physician History: Patient is a 52-year-old female presents emergency department for evaluation of cough and congestion. Patient states she has been experiencing cough and congestion for the past 4 weeks. Patient has been to [facility]. Patient has been through a course of antibiotics and steroids. Patient states that she feels congested. No chest pain. No nausea vomiting or diaphoresis. No fever. Symptoms are mild in intensity. No specific worsening improving factors. Patient voices no other complaints or concerns at this time. Portions of this note were created with voice recognition technology. There may be grammatical, spelling, punctuation or sound alike errors Timing/Duration: week(s) (4 weeks) Severity: mild Modifying Factors: Improves With: nothing Associated Symptoms: denies symptoms Allergies/Adverse Reactions: codeine Allergy (Verified 03/12/22 11:16) Nausea Home Medications: Cyanocobalamin (Vitamin B-12) [Vitamin B12] 500 mcg PO DAILY 11/19/21 [History] Ezetimibe 10 mg [Zetia 10 MG] 1 tab PO DAILY 11/19/21 [History] Amlodipine Besylate 2.5 mg PO DAILY 01/12/22 [History] Ergocalciferol (Vitamin D2) [Vitamin D2] 1 cap PO DAILY 01/12/22 [History] Ferrous Gluconate 324 mg PO DAILY 01/12/22 [History] Ibuprofen 800 mg PO TIDPRN PRN 01/12/22 [History] Insulin Glargine,Hum.rec.anlog [Basaglar Kwikpen U-100] 1 unit SQ DAILY 01/12/22 [History] Propranolol HCl 40 mg PO BID 01/12/22 [History] Ertugliflozin Pidolate [Steglatro] 1 tab PO DAILY 03/12/22 [History] Hx Tetanus, Diphtheria Vaccination/Date Given: Yes Hx Influenza Vaccination/Date Given: No Hx Pneumococcal Vaccination/Date Given: No Immunizations Up to Date: Yes Travel Risk - International Travel Have you traveled outside of the country in past 3 weeks: No - Coronavirus Screening Symptoms: Cough: New Onset Close contact with a COVID-19 positive Pt in past 14-21 Days: No - Vaccine Status Have you recieved a Covid-19 vaccination: Yes 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[employer]) - Vaccination Dates Date of 2cond Vaccination (if applicable): 2020 - Review of Systems Constitutional: No Symptoms, No Fever, No Chills Eyes: No Symptoms Ears, Nose, & Throat: No Symptoms Respiratory: No Symptoms, No Cough, No Dyspnea Cardiac: No Symptoms, No Chest Pain, No Edema, No Syncope Abdominal/Gastrointestinal: No Symptoms, No Abdominal Pain, No Nausea, No Vomiting, No Diarrhea Genitourinary Symptoms: No Symptoms, No Dysuria Musculoskeletal: No Symptoms, No Back Pain, No Neck Pain Skin: No Symptoms, No Rash Neurological: No Symptoms, No Dizziness, No Focal Weakness, No Sensory Changes Psychological: No Symptoms Endocrine: No Symptoms Hematologic/Lymphatic: No Symptoms Immunological/Allergic: No Symptoms All Other Systems: Reviewed and Negative - Past Medical History Pertinent Past Medical History: Yes Neurological History: Migraines Cardiac History: High Cholesterol, Hypertension Respiratory History: No Pertinent History Endocrine Medical History: Diabetes Type II, Hypothyroidism Musculoskeletal History: Fractures GI Medical History: Gallbladder Disease History: No Pertinent History Psycho-Social History: Depression Female Reproductive Disorders: No Pertinent History Other Medical History: fractured coccyx (20+ years ago), cracked ribbed (R side), thyroid nodule - Past Surgical History Past Surgical History: Yes Neuro Surgical History: No Pertinent History Cardiac: No Pertinent History Respiratory: No Pertinent History Gastrointestinal: Cholecystectomy, Colon Resection Genitourinary: No Pertinent History Musculoskeletal: No Pertinent History Female Surgical History: No Pertinent History - Social History Smoking Status: Never smoker Exposure to second hand smoke: No Drug Use: none Patient Lives Alone: Yes Significant Family History: no pertinent family hx - Nursing Vital Signs Nursing Vital Signs: Initial Vital Signs Temperature 97.2 F 04/05/22 13:04 Pulse Rate 85 04/05/22 13:04 Respiratory Rate 22 04/05/22 13:04 Blood Pressure 152/89 04/05/22 13:04 O2 Sat by Pulse Oximetry 97 04/05/22 13:04 Pain Scale Pain Intensity 0 - Physical Exam General Appearance: no apparent distress, alert Eye Exam: PERRL/EOMI, eyes nml inspection Ears, Nose, Throat Exam: normal ENT inspection, TMs normal, pharynx normal, moist mucous membranes Neck Exam: normal inspection, non-tender, supple, full range of motion Respiratory Exam: normal breath sounds, lungs clear, airway intact, No respiratory distress Cardiovascular Exam: regular rate/rhythm, normal heart sounds, normal peripheral pulses Gastrointestinal/Abdomen Exam: soft, normal bowel sounds, No tenderness, No mass Back Exam: normal inspection, normal range of motion, No CVA tenderness, No vertebral tenderness Extremity Exam: normal inspection, normal range of motion, pelvis stable Neurologic Exam: alert, 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, cooperative, normal mood/affect, nml cerebellar function, nml station & gait, sensation nml, No motor deficits Skin Exam: normal color, warm, dry, No rash Lymphatic Exam: No adenopathy SpO2 Interpretation: normal SpO2: 96 O2 Delivery: Room Air - Course Nursing assessment & vital signs reviewed: Yes EKG Interpreted by Me: RATE (75), Sinus Rhythm, NORMAL AXIS, NORMAL INTERVALS - Radiology Exams Chest X-ray Interpretation: Interpreted by me (No new acute findings. Hyperinflated lungs. Normal cardiac silhouette. Mild degenerative changes) Ordered Tests: Active Orders 24 hr Category Date Time Status CHEST 1 VIEW (PORTABLE) Stat Exams 04/05/22 13:25 Completed Lab/Rad Data: Laboratory Results 04/05/22 Range/Units 13:54 Influenza Type A Ag NEGATIVE (NEGATIVE) Influenza Type B Ag NEGATIVE (NEGATIVE) RSV (PCR) NEGATIVE (Negative) SARS-CoV-2 (PCR) NEGATIVE (NEGATIVE) - Progress Progress: improved Progress Note: Patient reassessed. Patient resting comfortably. Vital stable. Patient voices no other complaints or concerns at this time. X-ray essentially nonremarkable. COVID test negative. No indication for further work-up at this time. Will discharge home. Patient agrees to follow-up with primary care doctor within 48 hours for evaluation. Portions of this note were created with voice recognition technology. There may be grammatical, spelling, punctuation or sound alike errors 04/05/22 14:36 EKG normal sinus rhythm 04/05/22 14:50 Counseled pt/family regarding: lab results, diagnosis, need for follow-up, rad results - Departure Departure Disposition: Home Clinical Impression: Cough Condition: Stable Critical Care Time: No Referrals: ALFREDITO CALDERÓN MD [Primary Care Provider] - Follow up/PCP as directed Additional Instructions: Discharge/Care Plan JUANITA CLEVELAND was seen on 04/05/22 in the Emergency Room. The patient was counseled regarding Diagnosis,Lab results, Imaging studies, need for follow up and when to return to the Emergency Room. Prescriptions given: Discharge Note I have spoken with the patient and/or caregivers. I have explained the patient's condition, diagnosis and treatment plan based on the information available to me at this time. I have answered the patient's and/or caregiver's questions and add ressed any concerns. The patient and/or caregivers have as good understanding of the patient's diagnosis, condition and treatment plan as can be expected at this point. The vital signs have been stable. The patient's condition is stable and appropriate for discharge from the emergency department. The patient will pursue further outpatient evaluation with the primary care physician or other designated or consulting physician as outlined in the discharge instructions. The patient and/or caregivers are agreeable to this plan of care and follow-up instructions have been explained in detail. The patient and/or caregivers have received these instruction. The patient/and or caregivers are aware that any significant change in condition or worsening of symptoms should prompt an immediate return to this or the closest emergency department or call 911.
== END 2022-04-05 14:54 | disposition home or self-care (01) ==
LOC: ED 12:51
DX: R05.2 Subacute cough (principal); R09.81 Nasal congestion; E78.5 Hyperlipidemia, unspecified; I10 Essential (primary) hypertension; E11.9 Type 2 diabetes mellitus without complications; Z79.4 Long term (current) use of insulin; Z79.84 Long term (current) use of oral hypoglycemic drugs; Z79.899 Other long term (current) drug therapy
CPT/HCPCS: 0241U; 71045; 99283

== ENCOUNTER 2022-05-25 08:10 | Emergency (ER) | payer OTHER ==
[2022-05-25] MEDS ORDERED: NORVASC 5 MG PO ONE (08:23)
[2022-05-25] MEDS ORDERED: NORVASC 5 MG ONE (08:27)
[2022-05-25] MEDS ORDERED: BENADRYL 50 MG/ML IM ONE (08:28)
[2022-05-25] MEDS ORDERED: TORAdol 30 mg Injection IM ONE (08:28)
[2022-05-25] MEDS ORDERED: TORAdol 30 mg Injection ONE (08:32)
[2022-05-25] MEDS ORDERED: BENADRYL 50 MG/ML ONE (08:32)
--- NOTE | 2022-05-25 08:47 | ERPHSYRPT ---
- History of Present Illness Time Seen by Provider: 05/25/22 08:30 Source: patient Exam Limitations: no limitations Patient Subjective Stated Complaint: Pt states "I have not worn my CPAP in the last couple of days and now I have had a headache on the back right side of my head." Triage Nursing Assessment: PT presented alert and oriented X 3, skin pwd. Pt ambulates with an upright steady gait, able to speak in clear full sentences. PT in no appaernt respiratory distress. Physician History: Patient is a 52-year-old white female who has a history of sleep apnea and uses a CPAP machine on a regular basis. Because of some equipment that is worn out and her supplier has gone out of business she is been without CPAP for the last 3 nights. She also complains of a headache right sided occipital in location. She has a history of migraines but states this headache is not typical of her previous migraines which are associated with photophobia nausea vomiting etc. This headache is not associated with any light sensitivity or nausea or vomiting. She has noted several episodes over the last few days where her chin will quiver for a brief period of time only seconds and then stops she is concerned that this might be related to the headache. She also is hypertensive blood pressure diastolic 107 on arrival. She does use amlodipine and Inderal for her blood pressure, migraine headaches and we will encourage her to continue these for her tremors. Quality: stabbing Head Pain Location: occipital (Right occipital) Severity of Pain-Max: moderate Severity of Pain-Current: mild Recent Head Trauma: occasional headaches Previous symptoms: no prior history Allergies/Adverse Reactions: codeine Allergy (Verified 03/12/22 11:16) Nausea Home Medications: Cyanocobalamin (Vitamin B-12) [Vitamin B12] 500 mcg PO DAILY 11/19/21 [History] Ezetimibe 10 mg [Zetia 10 MG] 1 tab PO DAILY 11/19/21 [History] Amlodipine Besylate 2.5 mg PO DAILY 01/12/22 [History] Ergocalciferol (Vitamin D2) [Vitamin D2] 1 cap PO DAILY 01/12/22 [History] Ferrous Gluconate 324 mg PO DAILY 01/12/22 [History] Ibuprofen 800 mg PO TIDPRN PRN 01/12/22 [History] Insulin Glargine,Hum.rec.anlog [Basaglar Kwikpen U-100] 1 unit SQ DAILY 01/12/22 [History] Propranolol HCl 40 mg PO BID 01/12/22 [History] Ertugliflozin Pidolate [Steglatro] 1 tab PO DAILY 03/12/22 [History] Hx Tetanus, Diphtheria Vaccination/Date Given: Yes Hx Influenza Vaccination/Date Given: No Hx Pneumococcal Vaccination/Date Given: No Immunizations Up to Date: Yes Travel Risk - International Travel Have you traveled outside of the country in past 3 weeks: No - Coronavirus Screening Are you exhibiting any of the following symptoms?: Yes Symptoms: Headaches/Body Aches/Fatigue Close contact with a COVID-19 positive Pt in past 14-21 Days: No - Vaccine Status Have you recieved a Covid-19 vaccination: Yes [employer]: [employer] - Vaccination Dates Date of 2cond Vaccination (if applicable): 2020 - Review of Systems Constitutional: No Fever, No Chills Eyes: No Symptoms Ears, Nose, & Throat: No Symptoms Respiratory: No Cough, No Dyspnea Cardiac: No Chest Pain, No Edema, No Syncope Abdominal/Gastrointestinal: No Abdominal Pain, No Nausea, No Vomiting, No Diarrhea Genitourinary Symptoms: No Dysuria Musculoskeletal: No Back Pain, No Neck Pain Skin: No Rash Neurological: Headache, Tremors, No Dizziness, No Focal Weakness, No Sensory Changes Psychological: No Symptoms Endocrine: No Symptoms All Other Systems: Reviewed and Negative - Past Medical History Pertinent Past Medical History: Yes Neurological History: Migraines Cardiac History: High Cholesterol, Hypertension Respiratory History: No Pertinent History Endocrine Medical History: Diabetes Type II, Hypothyroidism Musculoskeletal History: Fractures GI Medical History: Gallbladder Disease History: No Pertinent History Psycho-Social History: Depression Female Reproductive Disorders: No Pertinent History Other Medical History: fractured coccyx (20+ years ago), cracked ribbed (R side), thyroid nodule - Past Surgical History Past Surgical History: Yes Neuro Surgical History: No Pertinent History Cardiac: No Pertinent History Respiratory: No Pertinent History Gastrointestinal: Cholecystectomy, Colon Resection Genitourinary: No Pertinent History Musculoskeletal: No Pertinent History Female Surgical History: No Pertinent History - Social History Smoking Status: Never smoker Exposure to second hand smoke: No Drug Use: none Patient Lives Alone: Yes Significant Family History: no pertinent family hx - Nursing Vital Signs Nursing Vital Signs: Initial Vital Signs Temperature 97.6 F 05/25/22 08:13 Pulse Rate 96 H 05/25/22 08:13 Respiratory Rate 20 05/25/22 08:13 Blood Pressure 121/107 05/25/22 08:13 O2 Sat by Pulse Oximetry 98 05/25/22 08:13 Pain Scale Pain Intensity 4 - Physical Exam General Appearance: mild distress Eye Exam: PERRL/EOMI Ears, Nose, Throat Exam: normal ENT inspection, moist mucous membranes Neck Exam: normal inspection, supple, full range of motion, No meningismus Respiratory Exam: normal breath sounds, lungs clear Cardiovascular Exam: regular rate/rhythm, normal heart sounds Gastrointestinal/Abdominal Exam: soft, No tenderness, No distention Back Exam: normal inspection, normal range of motion 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, 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, 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: normal speech, PERRL, No facial droop Coordination/Gait Exam: normal cerebellar function Motor/Sensory Exam: no motor deficit, no sensory deficit Skin Exam: normal color, warm, dry, No rash SpO2 Interpretation: normal SpO2: 98 O2 Delivery: Room Air - Course Nursing assessment & vital signs reviewed: Yes - CT Exams Head CT Interpretation: Negative Ordered Tests: Active Orders 24 hr Category Date Time Status HEAD WITHOUT CONTRAST [CT] Stat Exams 05/25/22 08:29 Completed CBC W DIFF Stat Lab 05/25/22 08:48 Completed CMP Stat Lab 05/25/22 08:48 Completed Erythrocyte Sedimentation Rate Stat Lab 05/25/22 08:48 Completed Lactic Acid Urgent Lab 05/25/22 08:50 Completed UA W/RFX CULTURE Stat Lab 05/25/22 Ordered Medication Summary Generic Name Dose Route Start Last Admin Trade Name Freq PRN Reason Stop Dose Admin Propranolol HCl 40 mg 05/25/22 10:00 05/25/22 08:35 Propranolol Hcl 20 Mg Tablet PO 05/25/22 10:01 40 mg STAT ONE Administration Discontinued Medications Generic Name Dose Route Start Last Admin Trade Name Freq PRN Reason Stop Dose Admin Amlodipine Besylate 2.5 mg 05/25/22 08:23 05/25/22 08:34 Amlodipine Besylate 5 Mg Tablet PO 05/25/22 08:24 2.5 mg STAT ONE Administration Amlodipine Besylate Confirm 05/25/22 08:27 Amlodipine Besylate 5 Mg Tablet Administered 05/25/22 08:28 Dose 5 mg .ROUTE .[facility] ONE Diphenhydramine HCl 25 mg 05/25/22 08:28 05/25/22 08:35 Diphenhydramine Hcl 50 Mg/Ml Vial IM 05/25/22 08:29 25 mg STAT ONE Administration Diphenhydramine HCl Confirm 05/25/22 08:32 Diphenhydramine Hcl 50 Mg/Ml Vial Administered 05/25/22 08:33 Dose 50 mg .ROUTE .[facility] ONE Ketorolac Tromethamine 60 mg 05/25/22 08:28 05/25/22 08:35 Ketorolac Tromethamine 30 Mg/Ml Inj IM 05/25/22 08:29 60 mg STAT ONE Administration Ketorolac Tromethamine Confirm 05/25/22 08:32 Ketorolac Tromethamine 30 Mg/Ml Inj Administered 05/25/22 08:33 Dose 60 mg .ROUTE .[facility] ONE Lab/Rad Data: Laboratory Result Diagrams 05/25/22 08:48 05/25/22 08:48 Laboratory Results 05/25/22 05/25/22 05/25/22 Range/Units 08:50 08:48 08:48 WBC 10.6 H (4.0-10.5) x10^3/uL RBC 5.45 H (4.1-5.4) x10^6/uL Hgb 15.3 (12.0-16.0) g/dL Hct 47.3 H (35-47) % MCV 86.8 (78-100) fL MCH 28.1 (26-32) pg MCHC 32.3 (32-36) g/dL RDW 13.5 (11.5-14.0) % Plt Count 382 (150-450) x10^3/uL MPV 9.7 (7.5-11.0) fL Gran % 46.4 (36.0-66.0) % Immature Gran % (Auto) 0.4 (0.00-0.4) % Nucleat RBC Rel Count 0.0 (0.00-0.1) % Eos # (Auto) 0.11 (0-0.5) x10^3/uL Immature Gran # (Auto) 0.04 H (0.00-0.03) x10^3u/L Absolute Lymphs (auto) 4.59 (1.0-4.6) x10^3/uL Absolute Monos (auto) 0.90 (0.0-1.3) x10^3/uL Absolute Nucleated RBC 0.00 (0.00-0.01) x10^3u/L Lymphocytes % 43.2 (24.0-44.0) % Monocytes % 8.5 (0.0-12.0) % Eosinophils % 1.0 (0.00-5.0) % Basophils % 0.5 (0.0-0.4) % Absolute Granulocytes 4.94 (1.4-6.9) x10^3/uL Basophils # 0.05 (0-0.4) x10^3/uL ESR 39 H (0-20) mm/hr Sodium 139 (137-145) mmol/L Potassium 3.9 (3.5-5.1) mmol/L Chloride 106 (98-107) mmol/L Carbon Dioxide 20 L (22-30) mmol/L Anion Gap 17.2 H (5-15) MEQ/L BUN 18 H (7-17) mg/dL Creatinine 0.47 L (0.52-1.04) mg/dL Estimated GFR > 60.0 ML/MIN Glucose 184 H (74-106) mg/dL Lactic Acid 1.7 (0.4-2.0) Calcium 9.0 (8.4-10.2) mg/dL Total Bilirubin 0.70 (0.2-1.3) mg/dL AST 19 (14-36) U/L ALT 24 (0-35) U/L Alkaline Phosphatase 110 (38-126) U/L Serum Total Protein 7.5 (6.3-8.2) g/dL Albumin 4.2 (3.5-5.0) g/dL - Progress Progress: improved Air Movement: good Blood Culture(s) Obtained: No Antibiotics given: No - Departure Departure Disposition: Home Clinical Impression: Headache, Occasional tremors, Hypertension Condition: Stable Critical Care Time: No Referrals: ALFREDITO CALDERÓN MD [Primary Care Provider] - Follow up/PCP as directed Instructions: Headache, Adult (DC)
[2022-05-25 08:53] LABS: Absolute Neutrophil Ct (ANC) 4.94 x10^3/uL (1.4-6.9); Basophil (Absolute #) 0.05 x10^3/uL (0-0.4); Eosinophil (Absolute #) 0.11 x10^3/uL (0-0.5); Hematocrit 47.3 % (35-47); Hemoglobin 15.3 g/dL (12.0-16.0); Lymphocyte (Absolute #) 4.59 x10^3/uL (1.0-4.6); Lymphocytes % 43.2 % (24.0-44.0); Mean Cell Volume 86.8 fL (78-100); Mean Corpuscular Hemoglobin 28.1 pg (26-32); Mean Corpuscular Hgb Concent. 32.3 g/dL (32-36); Mean Platelet Volume 9.7 fL (7.5-11.0); Monocytes % 8.5 % (0.0-12.0); Neutrophil % 46.4 % (36.0-66.0); Platelet Count 382 x10^3/uL (150-450); Red Blood Count 5.45 x10^6/uL (4.1-5.4); Red Cell Distribution Width 13.5 % (11.5-14.0); White Blood Count 10.6 x10^3/uL (4.0-10.5)
[2022-05-25 08:56] LABS: Erythrocyte Sedimentation Rate 39 mm/hr (0-20)
--- NOTE | 2022-05-25 09:03 | XRAY ---
Indication: Headache. Multiple contiguous axial images obtained through the head without contrast. Comparison: None Normal appearing brain parenchyma, ventricles, and bony calvarium for patient's age. Visualized paranasal sinuses and mastoid air cells are clear. Impression: Normal CT head without contrast exam.
[2022-05-25 09:04] LABS: ALBUMIN 4.2 g/dL (3.5-5.0); ALKALINE PHOSPHATASE 110 U/L (38-126); ANION GAP 17.2 MEQ/L (5-15); BLOOD UREA NITROGEN 18 mg/dL (7-17); CHLORIDE 106 mmol/L (98-107); Carbon Dioxide 20 mmol/L (22-30); Creatinine 1 0.47 mg/dL (0.52-1.04); EST GLOMERULAR FILTRATION RATE > 60.0 ML/MIN; Glucose 184 mg/dL (74-106); Potassium 3.9 mmol/L (3.5-5.1); SGOT/AST 19 U/L (14-36); SGPT/ALT 24 U/L (0-35); SODIUM 139 mmol/L (137-145); Total Protein 7.5 g/dL (6.3-8.2)
[2022-05-25] MEDS ORDERED: Inderal PO ONE (10:00)
[2022-05-25 10:07] VITALS: BP 97/71; PULSE 77; O2SAT 90
== END 2022-05-25 10:07 | disposition home or self-care (01) ==
LOC: ED 08:10
DX: R51.9 Headache, unspecified (principal); R25.1 Tremor, unspecified; I10 Essential (primary) hypertension; E78.5 Hyperlipidemia, unspecified; E11.9 Type 2 diabetes mellitus without complications; Z79.4 Long term (current) use of insulin; Z79.899 Other long term (current) drug therapy
CPT/HCPCS: 36415; 70450; 80053; 83605; 85025; 85652; 96372; 99284; J1200; J1885; A9270-GY

== ENCOUNTER 2022-06-24 16:21 | Emergency (ER) | payer OTHER ==
--- NOTE | 2022-06-24 16:27 | ERPHSYRPT ---
- History of Present Illness Time Seen by Provider: 06/24/22 16:26 Source: patient Exam Limitations: no limitations Physician History: This is a 52-year-old white female who has had left hip pain for a few weeks. She denies a recent fall. The history that I am reporting is that which I reviewed from the nurses note and discussion with the nurse. By the time I was able to evaluate the patient, after her obtaining the CT scan of the pelvis to evaluate her left hip, the patient was gone. I did reviewed old charts as well and found that the patient does have hyperlipidemia, insulin-dependent diabetes, hypertension, sleep apnea on a CPAP machine and migraine headaches. Patient did not inform anyone that she was leaving. The patient eloped. However, the CAT scan of the pelvis was performed and I reviewed the results of that report but I could not provide the patient with the results. The CT scan of the pelvis without contrast shows joint space narrowing of both hips with no acute fracture, dislocation or suspicious bony lesions. Method of Injury: other (No known recent injury) Quality: aching Severity of Pain-Max: moderate Severity of Pain-Current: mild Lower Extremities Pain: hip: left Modifying Factors: Improves With: movement Allergies/Adverse Reactions: codeine Allergy (Verified 06/24/22 16:34) Nausea Home Medications: Cyanocobalamin (Vitamin B-12) [Vitamin B12] 500 mcg PO DAILY 11/19/21 [History] Amlodipine Besylate 2.5 mg PO DAILY 01/12/22 [History] Ergocalciferol (Vitamin D2) [Vitamin D2] 1 cap PO DAILY 01/12/22 [History] Ferrous Gluconate 324 mg PO DAILY 01/12/22 [History] Ibuprofen 800 mg PO TIDPRN PRN 01/12/22 [History] Insulin Glargine,Hum.rec.anlog [Basaglar Kwikpen U-100] 1 unit SQ DAILY 01/12/22 [History] Propranolol HCl 40 mg PO BID 01/12/22 [History] Atorvastatin Calcium [Lipitor 40Mg] 1 tab PO DAILY 06/24/22 [History] Hx Tetanus, Diphtheria Vaccination/Date Given: Yes Hx Influenza Vaccination/Date Given: No Hx Pneumococcal Vaccination/Date Given: No Travel Risk - International Travel Have you traveled outside of the country in past 3 weeks: No - Coronavirus Screening Are you exhibiting any of the following symptoms?: No Close contact with a COVID-19 positive Pt in past 14-21 Days: No - Vaccine Status Have you recieved a Covid-19 vaccination: Yes [employer]: [employer] - Vaccination Dates Date of 2cond Vaccination (if applicable): 2020 - Past Medical History Pertinent Past Medical History: Yes Neurological History: Migraines Cardiac History: High Cholesterol, Hypertension Respiratory History: No Pertinent History Endocrine Medical History: Diabetes Type II, Hypothyroidism Musculoskeletal History: Fractures GI Medical History: Gallbladder Disease History: No Pertinent History Psycho-Social History: Depression Female Reproductive Disorders: No Pertinent History Other Medical History: fractured coccyx (20+ years ago), cracked ribbed (R side), thyroid nodule - Past Surgical History Past Surgical History: Yes Neuro Surgical History: No Pertinent History Cardiac: No Pertinent History Respiratory: No Pertinent History Gastrointestinal: Cholecystectomy, Colon Resection Genitourinary: No Pertinent History Musculoskeletal: No Pertinent History Female Surgical History: No Pertinent History - Social History Smoking Status: Never smoker Exposure to second hand smoke: No Drug Use: none Patient Lives Alone: Yes Significant Family History: no pertinent family hx - Nursing Vital Signs Nursing Vital Signs: Initial Vital Signs Temperature 98 F 06/24/22 16:22 Pulse Rate 85 06/24/22 16:22 Respiratory Rate 17 06/24/22 16:22 Blood Pressure 128/80 06/24/22 16:22 O2 Sat by Pulse Oximetry 97 06/24/22 16:22 Pain Scale Pain Intensity 8 Ordered Tests: Active Orders 24 hr Category Date Time Status PELVIS WITHOUT CONTRAST [CT] Stat Exams 06/24/22 16:56 Completed - Departure Departure Disposition: Left without being seen (Patient eloped after her triage, after obtaining the CAT scan of the pelvis and before I was able to evaluate her.) Clinical Impression: Left hip pain Condition: Stable Critical Care Time: No Referrals: ALFREDITO CALDERÓN MD [Primary Care Provider] - Follow up/PCP as directed
[2022-06-24 16:47] VITALS: BP 128/80; PULSE 85; O2SAT 97
--- NOTE | 2022-06-24 17:22 | XRAY ---
Indication: Chronic left hip pain. Multiple contiguous axial images obtained through the pelvis with special attention to the osseous structures. Sagittal and coronal reformatted images obtained. Comparison: March 12, 2022 Both hips again demonstrates minimal axial joint space narrowing. No acute fracture, dislocation, or suspicious bony lesions. Stable bilateral SI joint degenerative vacuum phenomenon and minimal grade 1 L4 anterolisthesis. Visualized noncontrasted soft tissues again demonstrates uterine IUD in situ and minimal iliac artery calcifications. No suspicious pelvic free fluid/air. Impression: Continued nonacute CT pelvis exam again with chronic features.
== END 2022-06-24 17:20 | disposition home or self-care (01) ==
LOC: ED 16:21
DX: M25.552 Pain in left hip (principal); E78.5 Hyperlipidemia, unspecified; E11.9 Type 2 diabetes mellitus without complications; I10 Essential (primary) hypertension; Z79.4 Long term (current) use of insulin; Z79.899 Other long term (current) drug therapy
CPT/HCPCS: 72192; 99282

== ENCOUNTER 2022-08-09 08:35 | Emergency (ER) | payer OTHER ==
[2022-08-09] MEDS ORDERED: CLINDAMYCIN-D5W 900 MG/50 ML*** 900 MG/50 ML BAG IV STA (08:52)
[2022-08-09] MEDS ORDERED: ROCEPHIN 2 Gm-D5w 50ML BAG** 2 G/50 ML IVPB IV STA (08:52)
--- NOTE | 2022-08-09 09:09 | ERPHSYRPT ---
- History of Present Illness Time Seen by Provider: 08/09/22 08:55 Source: patient Exam Limitations: no limitations Patient Subjective Stated Complaint: Pt states "I got infection on my abdomen from my insulin pump" Triage Nursing Assessment: Pt presented alert and oriented X 3, skin pwd. Pt ambulates with an upright steady gait, able to speak in clear full sentences. PT has an 11 cm X 19 cm abscess noted to right lower abodmen. Physician History: Patient is a 52-year-old white female insulin-dependent diabetic who has developed a cellulitis and perhaps an abscess starting on her abdomen. This been present for 2 or 3 days. She has not been on any antibiotics prior to her arrival in the ER. She does not have a history of MRSA. Timing/Duration: day(s) (2) Quality: painful Severity: moderate Location: torso (Cellulitis noted in the suprapubic area. Infection apparently started with her insulin pump.) Possible Causes: other Allergies/Adverse Reactions: codeine Allergy (Verified 06/24/22 16:34) Nausea Home Medications: Cyanocobalamin (Vitamin B-12) [Vitamin B12] 500 mcg PO DAILY 11/19/21 [History] Amlodipine Besylate 2.5 mg PO DAILY 01/12/22 [History] Ergocalciferol (Vitamin D2) [Vitamin D2] 1 cap PO DAILY 01/12/22 [History] Ferrous Gluconate 324 mg PO DAILY 01/12/22 [History] Ibuprofen 800 mg PO TIDPRN PRN 01/12/22 [History] Insulin Glargine,Hum.rec.anlog [Basaglar Kwikpen U-100] 1 unit SQ DAILY 01/12/22 [History] Propranolol HCl 40 mg PO BID 01/12/22 [History] Atorvastatin Calcium [Lipitor 40Mg] 1 tab PO DAILY 06/24/22 [History] Hx Tetanus, Diphtheria Vaccination/Date Given: Yes Hx Influenza Vaccination/Date Given: No Hx Pneumococcal Vaccination/Date Given: No Immunizations Up to Date: Yes Travel Risk - International Travel Have you traveled outside of the country in past 3 weeks: No - Coronavirus Screening Are you exhibiting any of the following symptoms?: No Close contact with a COVID-19 positive Pt in past 14-21 Days: No - Vaccine Status Have you recieved a Covid-19 vaccination: Yes 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 - Review of Systems Constitutional: No Fever, No Chills Eyes: No Symptoms Ears, Nose, & Throat: No Symptoms Respiratory: No Cough, No Dyspnea Cardiac: No Chest Pain, No Edema, No Syncope Abdominal/Gastrointestinal: No Abdominal Pain, No Nausea, No Vomiting, No Diarrhea Genitourinary Symptoms: No Dysuria Musculoskeletal: No Back Pain, No Neck Pain Skin: No Rash Neurological: No Dizziness, No Focal Weakness, No Sensory Changes Psychological: No Symptoms Endocrine: No Symptoms All Other Systems: Reviewed and Negative - Past Medical History Pertinent Past Medical History: Yes Neurological History: Migraines Cardiac History: High Cholesterol, Hypertension Respiratory History: No Pertinent History Endocrine Medical History: Diabetes Type II, Hypothyroidism Musculoskeletal History: Fractures GI Medical History: Gallbladder Disease History: No Pertinent History Psycho-Social History: Depression Female Reproductive Disorders: No Pertinent History Other Medical History: fractured coccyx (20+ years ago), cracked ribbed (R side), thyroid nodule - Past Surgical History Past Surgical History: Yes Neuro Surgical History: No Pertinent History Cardiac: No Pertinent History Respiratory: No Pertinent History Gastrointestinal: Cholecystectomy, Colon Resection Genitourinary: No Pertinent History Musculoskeletal: No Pertinent History Female Surgical History: No Pertinent History - Social History Smoking Status: Never smoker Exposure to second hand smoke: No Drug Use: none Patient Lives Alone: Yes Significant Family History: no pertinent family hx - Nursing Vital Signs Nursing Vital Signs: Initial Vital Signs Temperature 97.8 F 08/09/22 08:47 Pulse Rate 87 08/09/22 08:47 Respiratory Rate 20 08/09/22 08:47 Blood Pressure 152/104 08/09/22 08:47 O2 Sat by Pulse Oximetry 98 08/09/22 08:47 Pain Scale Pain Intensity 2 - Physical Exam General Appearance: no apparent distress, alert Eye Exam: PERRL/EOMI, eyes nml inspection Ears, Nose, Throat Exam: normal ENT inspection, pharynx normal, moist mucous membranes Neck Exam: normal inspection, non-tender, supple, full range of motion Respiratory Exam: normal breath sounds, lungs clear, No respiratory distress Cardiovascular Exam: regular rate/rhythm, normal heart sounds Gastrointestinal/Abdomen Exam: soft, mass, No tenderness Back Exam: normal inspection, normal range of motion, No CVA tenderness, No vertebral tenderness Extremity Exam: normal inspection, normal range of motion Neurologic Exam: alert, 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, cooperative, normal mood/affect, sensation nml, No motor deficits Skin Exam: other (Area of cellulitis below the umbilicus in the suprapubic area) SpO2 Interpretation: normal SpO2: 98 O2 Delivery: Room Air - Course Nursing assessment & vital signs reviewed: Yes Ordered Tests: Medication Summary Generic Name Dose Route Start Last Admin Trade Name Freq PRN Reason Stop Dose Admin Ceftriaxone Sodium/Dextrose 2 g in 50 mls @ 100 mls/hr 08/09/22 08:52 Rocephin 2 Gm-D5w 50ml Bag IV 08/09/22 09:21 STAT STA Clindamycin HCl/Dextrose 900 mg in 50 mls @ 100 mls/hr 08/09/22 08:52 Clindamycin-D5w 900 Mg/50 Ml IV 08/09/22 09:21 STAT STA - Progress Progress: unchanged Medical Desision Making - Risk of complications The pt has a mod risk of morbidity or mortality based on: Need for prescription drug management, Need for minor surgical intervention in patient with know risk factors - Departure Departure Disposition: Home Clinical Impression: Cellulitis of abdominal wall Condition: Stable Critical Care Time: No Instructions: Cellulitis (Skin Infection), Adult (DC) Prescriptions: clindamycin HCL [Cleocin HCl] 300 mg PO TID 10 Days #30 cap Cephalexin Mh 500 mg [Keflex 500 mg] 500 mg PO QID #40 cap
[2022-08-09] MEDS ORDERED: ROCEPHIN 2 Gm-D5w 50ML BAG** 2 G/50 ML IVPB IV ONE (09:21)
[2022-08-09] MEDS ORDERED: CLINDAMYCIN-D5W 900 MG/50 ML*** 900 MG/50 ML BAG IV ONE (09:21)
[2022-08-09 09:54] VITALS: O2SAT 96
[2022-08-09 10:14] VITALS: BP 140/88; PULSE 83
== END 2022-08-09 10:50 | disposition home or self-care (01) ==
LOC: ED 08:35
DX: L03.311 Cellulitis of abdominal wall (principal); E78.5 Hyperlipidemia, unspecified; I10 Essential (primary) hypertension; E11.9 Type 2 diabetes mellitus without complications; Z79.4 Long term (current) use of insulin; Z96.41 Presence of insulin pump (external) (internal); Z79.899 Other long term (current) drug therapy
CPT/HCPCS: 36000; 96365; 96368; 99283; J0696

== ENCOUNTER 2022-09-23 09:15 | Emergency (ER) | payer OTHER ==
[2022-09-23 10:39] LABS: Absolute Neutrophil Ct (ANC) 3.91 x10^3/uL (1.4-6.9); BASOPHIL % 0.5 % (0.0-0.4); Basophil (Absolute #) 0.04 x10^3/uL (0-0.4); Eosinophil % 1.5 % (0.00-5.0); Eosinophil (Absolute #) 0.13 x10^3/uL (0-0.5); Hematocrit 44.3 % (35-47); Hemoglobin 14.4 g/dL (12.0-16.0); IMMATURE GRAN # 0.03 x10^3u/L (0.00-0.03); IMMATURE GRAN % 0.3 % (0.00-0.4); Lymphocyte (Absolute #) 3.68 x10^3/uL (1.0-4.6); Lymphocytes % 42.7 % (24.0-44.0); Mean Cell Volume 85.5 fL (78-100); Mean Corpuscular Hemoglobin 27.8 pg (26-32); Mean Corpuscular Hgb Concent. 32.5 g/dL (32-36); Mean Platelet Volume 10.4 fL (7.5-11.0); Monocyte (Absolute #) 0.83 x10^3/uL (0.0-1.3); Monocytes % 9.6 % (0.0-12.0); Neutrophil % 45.4 % (36.0-66.0); Platelet Count 330 x10^3/uL (150-450); Red Blood Count 5.18 x10^6/uL (4.1-5.4); Red Cell Distribution Width 13.3 % (11.5-14.0); White Blood Count 8.6 x10^3/uL (4.0-10.5)
[2022-09-23 11:02] LABS: ALBUMIN 3.8 g/dL (3.5-5.0); ALKALINE PHOSPHATASE 109 U/L (38-126); ANION GAP 14.7 MEQ/L (5-15); BLOOD UREA NITROGEN 14 mg/dL (7-17); CHLORIDE 102 mmol/L (98-107); Calcium 8.6 mg/dL (8.4-10.2); Carbon Dioxide 24 mmol/L (22-30); Creatinine 1 0.46 mg/dL (0.52-1.04); EST GLOMERULAR FILTRATION RATE > 60.0 ML/MIN; ETHYL ALCOHOL < 10 mg/dL (0-10); Glucose 302 mg/dL (74-106); SGOT/AST 28 U/L (14-36); SGPT/ALT 27 U/L (0-35); SODIUM 137 mmol/L (137-145); TROPONIN < 0.012 ng/mL (0.000-0.034); Total Protein 7.1 g/dL (6.3-8.2)
--- NOTE | 2022-09-23 11:06 | ERPHSYRPT ---
- History of Present Illness Time Seen by Provider: 09/23/22 10:00 Historian: patient Exam Limitations: no limitations Patient Subjective Stated Complaint: pt here for fluttering of heart only at night off and on for 3 weeks now, no co's at present time Triage Nursing Assessment: pt alert, resp easy, skin w/d/p. abd soft, no edema noted, moves all ext well Physician History: Patient is a 52-year-old female presents to our emergency department for evaluation of fluttering in her chest that occurs only at night when she sleeps. Symptoms occur for couple minutes then resolves. Symptoms have been ongoing for approximately 3 weeks now. She has not seen her family doctor. No associated symptomology. No nausea vomiting or diaphoresis. No chest pain per se. No dizziness or near syncopal episodes. Patient is currently asymptomatic. Patient voices no other complaints or concerns at this time. Portions of this note were created with voice recognition technology. There may be grammatical, spelling, punctuation or sound alike errors Timing/Duration: week(s) (3 weeks) Activities at Onset: activity Quality: other (Heart palpitations) Location: substernal Chest Pain Radiation: no radiation Severity of Pain-Max: moderate Severity of Pain-Current: mild Modifying Factors: Improves With: nothing, other (Symptoms only occur at night when she lays flat) Associated Symptoms: denies symptoms Prior Chest Pain/Cardiac Workup: no prior chest pain Nitro Today/Relief: no nitro taken today Aspirin Treatment Today: no aspirin today Allergies/Adverse Reactions: codeine Allergy (Verified 09/23/22 09:51) Nausea Home Medications: Cyanocobalamin (Vitamin B-12) [Vitamin B12] 500 mcg PO DAILY 11/19/21 [History] Amlodipine Besylate 2.5 mg PO DAILY 01/12/22 [History] Ergocalciferol (Vitamin D2) [Vitamin D2] 1 cap PO DAILY 01/12/22 [History] Ferrous Gluconate 324 mg PO DAILY 01/12/22 [History] Ibuprofen 800 mg PO TIDPRN PRN 01/12/22 [History] Propranolol HCl 40 mg PO BID 01/12/22 [History] Atorvastatin Calcium [Lipitor 40Mg] 1 tab PO DAILY 06/24/22 [History] Brexpiprazole [Rexulti] 1 ea DAILY 09/23/22 [History] Hx Tetanus, Diphtheria Vaccination/Date Given: Yes Hx Influenza Vaccination/Date Given: No Hx Pneumococcal Vaccination/Date Given: No Immunizations Up to Date: Yes Travel Risk - International Travel Have you traveled outside of the country in past 3 weeks: No - Coronavirus Screening Are you exhibiting any of the following symptoms?: No Close contact with a COVID-19 positive Pt in past 14-21 Days: No - Vaccine Status Have you recieved a Covid-19 vaccination: Yes Admissions Counselor: [facility] - Vaccination Dates Date of 2cond Vaccination (if applicable): ? - Review of Systems Constitutional: No Symptoms, No Fever, No Chills Eyes: No Symptoms Ears, Nose, & Throat: No Symptoms Respiratory: No Symptoms, No Cough, No Dyspnea Cardiac: No Symptoms, No Chest Pain, No Edema, No Syncope Abdominal/Gastrointestinal: No Symptoms, No Abdominal Pain, No Nausea, No Vomiting, No Diarrhea Genitourinary Symptoms: No Symptoms, No Dysuria Musculoskeletal: No Symptoms, No Back Pain, No Neck Pain Skin: No Symptoms, No Rash Neurological: No Symptoms, No Dizziness, No Focal Weakness, No Sensory Changes Psychological: No Symptoms Endocrine: No Symptoms Hematologic/Lymphatic: No Symptoms Immunological/Allergic: No Symptoms All Other Systems: Reviewed and Negative - Past Medical History Pertinent Past Medical History: Yes Neurological History: Migraines Cardiac History: High Cholesterol, Hypertension Respiratory History: No Pertinent History Endocrine Medical History: Diabetes Type II, Hypothyroidism Musculoskeletal History: Fractures GI Medical History: Gallbladder Disease History: No Pertinent History Psycho-Social History: Depression Female Reproductive Disorders: No Pertinent History Other Medical History: fractured coccyx (20+ years ago), cracked ribbed (R side), thyroid nodule - Past Surgical History Past Surgical History: Yes Neuro Surgical History: No Pertinent History Cardiac: No Pertinent History Respiratory: No Pertinent History Gastrointestinal: Cholecystectomy, Colon Resection Genitourinary: No Pertinent History Musculoskeletal: No Pertinent History Female Surgical History: No Pertinent History - Social History Smoking Status: Never smoker Exposure to second hand smoke: No Drug Use: none Patient Lives Alone: Yes Significant Family History: no pertinent family hx - Nursing Vital Signs Nursing Vital Signs: Initial Vital Signs Temperature 97.0 F 09/23/22 09:56 Pulse Rate 80 09/23/22 09:56 Respiratory Rate 16 09/23/22 09:56 Blood Pressure 157/101 09/23/22 09:56 O2 Sat by Pulse Oximetry 95 09/23/22 09:56 Pain Scale Pain Intensity 0 - Physical Exam General Appearance: no apparent distress, alert Eye Exam: PERRL/EOMI, eyes nml inspection Ears, Nose, Throat Exam: normal ENT inspection, TMs normal, pharynx normal, moist mucous membranes Neck Exam: normal inspection, non-tender, supple, full range of motion Respiratory Exam: normal breath sounds, lungs clear, airway intact, No re spiratory distress Cardiovascular Exam: regular rate/rhythm, normal heart sounds, normal peripheral pulses Gastrointestinal/Abdomen Exam: soft, normal bowel sounds, No tenderness, No mass Back Exam: normal inspection, No CVA tenderness, No vertebral tenderness Extremity Exam: normal inspection, normal range of motion Neurologic Exam: alert, 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, cooperative, normal mood/affect, sensation nml, No motor deficits Skin Exam: normal color, warm, dry Lymphatic Exam: No adenopathy SpO2 Interpretation: normal SpO2: 93 O2 Delivery: Room Air - Course Nursing assessment & vital signs reviewed: Yes EKG Interpreted by Me: RATE (79), Sinus Rhythm, NORMAL AXIS, NORMAL INTERVALS - Radiology Exams Chest X-ray Interpretation: Teleradiologist Report (No acute pathology observed on chest x-ray.) Ordered Tests: Active Orders 24 hr Category Date Time Status Aircraft Painter STAT Care 09/23/22 10:01 Active EKG-ER Only STAT Care 09/23/22 10:00 Active IV Insertion STAT Care 09/23/22 10:00 Active Pulse Oximetry (ED) STAT Care 09/23/22 10:00 Active CHEST 1 VIEW (PORTABLE) Stat Exams 09/23/22 10:01 Completed CBC W DIFF Stat Lab 09/23/22 10:24 Completed CMP Stat Lab 09/23/22 10:24 Completed ETHYL ALCOHOL Stat Lab 09/23/22 10:24 Completed NT PRO BNPII Stat Lab 09/23/22 10:24 Completed TROPONIN Q4H Lab 09/23/22 Ordered TROPONIN Q4H Lab 09/23/22 10:24 Completed TROPONIN Q4H Lab 09/23/22 10:24 Completed TSH [TSH, 3RD Generation] Stat Lab 09/23/22 10:50 Completed Urine Triage Profile Stat Lab 09/23/22 Ordered Holter Monitor ONCE RT 09/23/22 15:18 Active Lab/Rad Data: Laboratory Result Diagrams 09/23/22 10:24 09/23/22 10:24 Laboratory Results 09/23/22 09/23/22 09/23/22 Range/Units 10:50 10:24 10:24 WBC (4.0-10.5) x10^3/uL RBC (4.1-5.4) x10^6/uL Hgb (12.0-16.0) g/dL Hct (35-47) % MCV (78-100) fL MCH (26-32) pg MCHC (32-36) g/dL RDW (11.5-14.0) % Plt Count (150-450) x10^3/uL MPV (7.5-11.0) fL Gran % (36.0-66.0) % Immature Gran % (Auto) (0.00-0.4) % Nucleat RBC Rel Count (0.00-0.1) % Eos # (Auto) (0-0.5) x10^3/uL Immature Gran # (Auto) (0.00-0.03) x10^3u/L Absolute Lymphs (auto) (1.0-4.6) x10^3/uL Absolute Monos (auto) (0.0-1.3) x10^3/uL Absolute Nucleated RBC (0.00-0.01) x10^3u/L Lymphocytes % (24.0-44.0) % Monocytes % (0.0-12.0) % Eosinophils % (0.00-5.0) % Basophils % (0.0-0.4) % Absolute Granulocytes (1.4-6.9) x10^3/uL Basophils # (0-0.4) x10^3/uL Sodium (137-145) mmol/L Potassium (3.5-5.1) mmol/L Chloride (98-107) mmol/L Carbon Dioxide (22-30) mmol/L Anion Gap (5-15) MEQ/L BUN (7-17) mg/dL Creatinine (0.52-1.04) mg/dL Estimated GFR ML/MIN Glucose (74-106) mg/dL Calcium (8.4-10.2) mg/dL Total Bilirubin (0.2-1.3) mg/dL AST (14-36) U/L ALT (0-35) U/L Alkaline Phosphatase (38-126) U/L Troponin I < 0.012 (0.000-0.034) ng/mL NT-Pro-B Natriuret Pep 81.4 (<300) pg/mL Serum Total Protein (6.3-8.2) g/dL Albumin (3.5-5.0) g/dL TSH 3rd Generation 2.590 (0.47-4.68) mIU/L Ethyl Alcohol (0-10) mg/dL 09/23/22 09/23/22 Range/Units 10:24 10:24 WBC 8.6 (4.0-10.5) x10^3/uL RBC 5.18 (4.1-5.4) x10^6/uL Hgb 14.4 (12.0-16.0) g/dL Hct 44.3 (35-47) % MCV 85.5 (78-100) fL MCH 27.8 (26-32) pg MCHC 32.5 (32-36) g/dL RDW 13.3 (11.5-14.0) % Plt Count 330 (150-450) x10^3/uL MPV 10.4 (7.5-11.0) fL Gran % 45.4 (36.0-66.0) % Immature Gran % (Auto) 0.3 (0.00-0.4) % Nucleat RBC Rel Count 0.0 (0.00-0.1) % Eos # (Auto) 0.13 (0-0.5) x10^3/uL Immature Gran # (Auto) 0.03 (0.00-0.03) x10^3u/L Absolute Lymphs (auto) 3.68 (1.0-4.6) x10^3/uL Absolute Monos (auto) 0.83 (0.0-1.3) x10^3/uL Absolute Nucleated RBC 0.00 (0.00-0.01) x10^3u/L Lymphocytes % 42.7 (24.0-44.0) % Monocytes % 9.6 (0.0-12.0) % Eosinophils % 1.5 (0.00-5.0) % Basophils % 0.5 (0.0-0.4) % Absolute Granulocytes 3.91 (1.4-6.9) x10^3/uL Basophils # 0.04 (0-0.4) x10^3/uL Sodium 137 (137-145) mmol/L Potassium 4.0 (3.5-5.1) mmol/L Chloride 102 (98-107) mmol/L Carbon Dioxide 24 (22-30) mmol/L Anion Gap 14.7 (5-15) MEQ/L BUN 14 (7-17) mg/dL Creatinine 0.46 L (0.52-1.04) mg/dL Estimated GFR > 60.0 ML/MIN Glucose 302 H (74-106) mg/dL Calcium 8.6 (8.4-10.2) mg/dL Total Bilirubin 0.70 (0.2-1.3) mg/dL AST 28 (14-36) U/L ALT 27 (0-35) U/L Alkaline Phosphatase 109 (38-126) U/L Troponin I < 0.012 (0.000-0.034) ng/mL NT-Pro-B Natriuret Pep (<300) pg/mL Serum Total Protein 7.1 (6.3-8.2) g/dL Albumin 3.8 (3.5-5.0) g/dL TSH 3rd Generation (0.47-4.68) mIU/L Ethyl Alcohol < 10 (0-10) mg/dL - Progress Progress: improved Air Movement: good Progress Note: Patient is a 52-year-old female presents to our ED for evaluation of heart palpitations primarily at night. Symptoms have been ongoing for approximately 3 weeks. EKG reveals normal sinus rhythm. Chest x-ray negative for acute pathology. CBC CMP normal. EtOH negative. BNP negative. Troponin negative x2. TSH within normal limits. Urinalysis ordered however patient not produce urine for us while she has been here. Triage negative. We ordered a 48-hour Holter monitor to be placed on patient prior to discharge. The results will be forwarded to our proof machine operator. Patient feels well. No heart palpitations while in our ED. Vital stable. Will discharge home. Patient agrees to follow-up with primary care doctor within 48 hours for reevaluation. Portions of this note were created with voice recognition technology. There may be grammatical, spelling, punctuation or sound alike errors 09/23/22 15:21 Complexity of problem addressed is moderate, new diagnosis with uncertain prognosis. No critical care time Complexity of data reviewed and analyzed is moderate. Laboratory tests ordered reviewed and analyzed by Dr. Childers including EKG. Risk of complication and or risk morbidity/mortality of patient management is minimal. No medications administered. Monitoring equipment applied. Patient will be discharged home. Patient agrees to follow-up with her primary care doctor within 48 hours for reevaluation. Holter monitor applied. No social determinants of health present that will impede follow-up. Plan of care established via shared decision making. Eitel stable. Patient voices no other complaints or concerns at this time. Portions of this note were created with voice recognition technology. There may be grammatical, spelling, punctuation or sound alike errors 09/23/22 15:25 Blood Culture(s) Obtained: No Antibiotics given: No Counseled pt/family regarding: lab results, diagnosis, need for follow-up, rad results - Departure Departure Disposition: Home Clinical Impression: Heart palpitations Condition: Stable Critical Care Time: No Referrals: ALFREDITO CALDERÓN MD [Primary Care Provider] - Follow up/PCP as directed Additional Instructions: Discharge/Care Plan JUANITA CLEVELAND was seen on 09/23/22 in the Emergency Room. The patient was counseled regarding Diagnosis,Lab results, Imaging studies, need for follow up and when to return to the Emergency Room. Prescriptions given: Discharge Note I have spoken with the patient and/or caregivers. I have explained the patient's condition, diagnosis and treatment plan based on the information available to me at this time. I have answered the patient's and/or caregiver's questions and addressed any concerns. The patient and/or caregivers have as good understanding of the patient's diagnosis, condition and treatment plan as can be expected at this point. The vital signs have been stable. The patient's condition is stable and appropriate for discharge from the emergency department. The patient will pursue further outpatient evaluation with the primary care physician or other designated or consulting physician as outlined in the discharge instructions. The patient and/or caregivers are agreeable to this plan of care and follow-up instructions have been explained in detail. The patient and/or caregivers have received these instruction. The patient/and or caregivers are aware that any significant change in condition or worsening of symptoms should prompt an immediate return to this or the closest emergency department or call 911.
--- NOTE | 2022-09-23 15:17 | XRAY ---
CLINICAL HISTORY:chest pain COMPARISON:None; TECHNIQUES:Chest x-ray 1 view; AP view; FINDINGS: Radiographic examination of the chest demonstrates clear lungs. Normal configuration of the mediastinum. The stephy are normal in size and position. The cardiac size is normal. The bony thorax is unremarkable. The costophrenic and cardiophrenic angles are clear. IMPRESSION: 1-No significant abnormality. 2-The previous x-ray was also normal. Electronically Signed by: Polly Pompa MD. (09/23/2022 14:11:20 STAFF CYTOTECHNOLOGIST)
[2022-09-23 15:26] VITALS: BP 183/93; PULSE 81; O2SAT 93
[2022-09-23 16:50] LABS: Amphetamine,Urine SEE SEPARATE REPORT (NEGATIVE)
[2022-09-23 16:51] LABS: Barbiturate,Urine SEE SEPARATE REPORT (NEGATIVE); Benzodiazepine,Urine SEE SEPARATE REPORT (NEGATIVE); Cocaine,Urine SEE SEPARATE REPORT (NEGATIVE); Methadone,Urine SEE SEPARATE REPORT (NEGATIVE); Opiate,Urine SEE SEPARATE REPORT (NEGATIVE); PCP,Urine SEE SEPARATE REPORT (NEGATIVE); THC,Urine SEE SEPARATE REPORT (NEGATIVE)
== END 2022-09-23 15:41 | disposition home or self-care (01) ==
LOC: ED 09:15
DX: R00.2 Palpitations (principal); E78.5 Hyperlipidemia, unspecified; I10 Essential (primary) hypertension; E11.9 Type 2 diabetes mellitus without complications; Z79.899 Other long term (current) drug therapy
CPT/HCPCS: 36000; 36415; 71045; 80053; 80307; 82077; 83880; 84443; 84484; 85025; 93005; 93041; 93225; 94760; 99284